=== PATIENT | female | born 1945 | race Caucasian/White ===

== ENCOUNTER 2019-05-25 11:02 | Emergency (ER) | payer MEDICARE, SELFPAY ==
--- NOTE | 2019-05-25 11:10 | ECG_ITS ---
Measurements Intervals [place] Rate: 88 P: 67 [place]: 181 QRS: 12 QRSD: 95 T: 4 QT: 390 QTc: 473 Interpretive Statements SINUS RHYTHM BORDERLINE ST-T WAVE ABNORMALITY- INFERIOR LEADS BORDERLINE ECG Electronically Signed On 05-25-2019 12:07:21 SENIOR TEST ANALYST by Ariel Isaacs D.O.
[2019-05-25 11:21] VITALS: BP 165/92; PULSE 83; RESP 16; TEMP 36.6; O2SAT 97
[2019-05-25 11:26] LABS: Basophils Absolute Auto 0.05 K/mm3 (0.00-0.10); Basophils Percent Auto 0.6 % (0.0-1.0); Eosinophils Absolute Auto 0.39 K/mm3 (0.02-0.50); Eosinophils Percent Auto 4.4 % (1.0-6.0); Hematocrit 42.9 % (35.0-42.0); Hemoglobin 14.5 g/dL (11.7-13.8); Immature Granulocyte Absolute 0.04 K/mm3 (0.00-0.00); Immature Granulocyte Percent A 0.5 % (0.0-0.0); Lymphocytes Absolute Auto 1.65 K/mm3 (1.10-4.50); Lymphocytes Percent Auto 18.8 % (18.0-42.0); Mean Corpuscular HGB Conc 33.8 g/dL (32.0-36.0); Mean Corpuscular Hemoglobin 29.9 pg (27.0-31.0); Mean Corpuscular Volume 88.5 fL (78.0-102.0); Mean Platelet Volume 10.7 fl (9.2-11.8); Monocytes Absolute Auto 0.63 K/mm3 (0.10-0.90); Monocytes Percent Auto 7.2 % (2.0-11.0); Neutrophils Percent Auto 68.5 % (50.0-70.0); Platelet Count Result 233 K/mm3 (150-420); Red Blood Count 4.85 M/mm3 (4.20-5.40); Red Cell Distribution Width 12.5 % (11.6-14.4); White Blood Count 8.8 K/mm3 (4.8-10.8)
[2019-05-25 11:50] LABS: Alanine Aminotransferase 19 U/L (14-59); Albumin Level 4.2 g/dL (3.4-5.0); Alkaline Phosphatase 107 U/L (46-116); Anion Gap 17.3 mmol/L (7-16); Aspartate Amino Transferase 19 U/L (15-37); Bilirubin,Total 0.6 mg/dL (0.00-1.00); Blood Urea Nitrogen 16 mg/dL (7-18); Calcium 9.2 mg/dL (8.5-10.1); Carbon Dioxide 24 mmol/L (21-32); Chloride 105 mmol/L (98-108); Estimated Glomerular Filt Rate 59; Glucose 112 mg/dL (70-99); Osmolality Calculated 298 mOsm/kg (285-295); Potassium 3.3 mmol/L (3.5-5.1); Sodium 143 mmol/L (136-145); Total Protein 7.9 g/dL (6.4-8.2)
[2019-05-25 11:58] LABS: Troponin I < 0.02 ng/mL (0.00-0.056)
[2019-05-25] MEDS: AMLODIPINE BESYLATE 5 MG TABLET PO (12:27)
[2019-05-25] MEDS: POTASSIUM CHLORIDE 20 MEQ TABLET 40 MEQ PO (12:27)
[2019-05-25 12:37] LABS: Add Urine Microscopic? NO; Appearance Urine Clear (Clear); Bilirubin Urine Negative (Negative); Blood Urine Negative (Negative); Color Urine Yellow (Yellow); Glucose Urine UA Negative (Negative); Ketones Urine Negative (Negative); Leukocyte Esterase Ur Negative LEU/UL (Negative); Nitrate Urine Negative (Negative); Protein Urine Negative (Negative); Urobilinogen Urine 0.2 mg/dL (0.2-1.0)
[2019-05-25 12:54] VITALS: BP 189/106
--- NOTE | 2019-05-25 13:04 | ED.GENADULT ---
HPI - General Adult General Chief complaint: Recheck/Abnormal Lab/Rx Stated complaint: blood pressure /dizzy Source: patient and family Mode of arrival: ambulatory Limitations: no limitations History of Present Illness HPI narrative: 74-year-old female presents with elevated blood pressure some presented for a blood pressure check and her blood pressure was about 189/106 with dizziness, patient is currently on lisinopril and Norvasc, patient had no other symptoms, there is no chest pain no shortness of breath no abdominal pain no nausea vomiting no headache no blurry vision. Onset (ago): hour(s) Associated symptoms: denies other symptoms Related Data Home Medications Medication Instructions Recorded Confirmed amlodipine 2.5 mg PO DAILY 05/25/19 05/25/19 levothyroxine 88 mcg PO DAILY 05/25/19 05/25/19 lisinopril 40 mg PO DAILY 05/25/19 05/25/19 omeprazole 20 mg PO DAILY 05/25/19 05/25/19 pravastatin 40 mg PO DAILY 05/25/19 05/25/19 tramadol 50 mg PO Q6-8H PRN 05/25/19 05/25/19 Allergies Allergy/AdvReac Type Severity Reaction Status Date / Time acetaminophen Allergy Intermediate INDIGESTION Verified 05/25/19 12:57 AND CHEST TIGHTNESS aspirin Allergy Intermediate INDIGESTION Verified 06/06/15 07:48 AND CHEST TIGHTNESS calcium carbonate Allergy Intermediate INDIGESTION Verified 06/06/15 07:48 AND CHEST TIGHTNESS hydrocodone Allergy Intermediate ITCHING Verified 06/06/15 07:48 Review of Systems Review of Systems: All systems reviewed & are unremarkable except as noted in HPI and below PMFSH Past Medical History Medical History (Updated 05/25/19 @ 14:15 by Sanya Pulido MD) HTN (hypertension) Social History Social History Smoking status: Never smoker Alcohol intake: never Exam Const: General: no acute distress and alert Orientation/consciousness: patient oriented x3 Limitations: altered mental status HENMT: Head: normal to inspection Eyes: Conjunctivae: conjunctivae normal Pupils: Equal, round and reactive pupils present Neck: Neck: normal visual inspection and no lymphadenopathy Resp: Effort & Inspection: normal respiratory effort Cardio: Rate: regular rate Rhythm: regular rhythm GI: GI Palp: Yes Soft to palpation : General: Yes no CVA tenderness Back/Spine/Pelvis: Back: no CVA tenderness Skin: General skin exam: normal color Rashes: no rashes Neuro: General: patient oriented x3, no meningeal signs, no focal motor deficits and CN's II-XI intact bilaterally Cranial nerves: Yes Nystagmus not present Speech: normal speech Extrem: General: normal to inspection Psych: Mental Status: mental status grossly normal Course Vital Signs Vital signs: Vital Signs Temperature 36.6 C 05/25/19 11:21 Pulse Rate 83 05/25/19 11:21 Respiratory Rate 16 05/25/19 11:21 Blood Pressure 165/92 H 05/25/19 11:21 Pulse Oximetry 97 05/25/19 11:21 Temperature 36.6 C 05/25/19 11:21 Pulse Rate 73 05/25/19 13:48 Respiratory Rate 16 05/25/19 11:21 Blood Pressure 155/94 H 05/25/19 14:07 Pulse Oximetry 97 05/25/19 11:21 Medical Decision Making Vital Signs Vital Signs: Vital Signs Temperature 36.6 C 05/25/19 11:21 Pulse Rate 83 05/25/19 11:21 Respiratory Rate 16 05/25/19 11:21 Blood Pressure 165/92 H 05/25/19 11:21 Pulse Oximetry 97 05/25/19 11:21 Temperature 36.6 C 05/25/19 11:21 Pulse Rate 73 05/25/19 13:48 Respiratory Rate 16 05/25/19 11:21 Blood Pressure 155/94 H 05/25/19 14:07 Pulse Oximetry 97 05/25/19 11:21 Lab Data Lab results reviewed: Yes I reviewed the patient's lab results. Result diagrams: 05/25/19 11:17 05/25/19 11:17 Labs: Lab Results 05/25/19 05/25/19 05/25/19 Range/Units 11:15 11:17 11:17 WBC 8.8 (4.8-10.8) K/mm3 RBC 4.85 (4.20-5.40) M/mm3 Hgb 14.5 H (11.7-13.8) g/dL
[2019-05-25 13:48] VITALS: PULSE 73
[2019-05-25] MEDS: METOPROLOL TARTRATE INJ 5 MG/5 ML VIAL IV PUSH (13:48)
[2019-05-25 13:49] VITALS: BP 176/94
[2019-05-25 14:07] VITALS: BP 155/94
[2019-05-25 14:28] VITALS: BP 132/71
== END 2019-05-25 14:29 | disposition home or self-care (01) ==
PROVIDERS: Emergency Provider Emergency Medicine; PCP Internal Medicine
DX: I10 Essential (primary) hypertension (principal)
CPT/HCPCS: 36415; 80053; 81003; 84484; 85025; 93005; 96374; 99283; 99284; A9270

== ENCOUNTER 2019-05-31 11:27 | Outpatient (CLI) | payer MEDICARE, SELFPAY ==
[2019-05-31 12:46] LABS: Anion Gap 15.9 mmol/L (7-16); Blood Urea Nitrogen 27 mg/dL (7-18); Calcium 9.7 mg/dL (8.5-10.1); Carbon Dioxide 27 mmol/L (21-32); Chloride 106 mmol/L (98-108); Estimated Glomerular Filt Rate 44; Glucose 96 mg/dL (70-99); Osmolality Calculated 305 mOsm/kg (285-295); Potassium 3.9 mmol/L (3.5-5.1); Sodium 145 mmol/L (136-145)
== END 2019-05-31 11:28 | disposition home or self-care (01) ==
LOC: CHSLAB 11:29
PROVIDERS: PCP Internal Medicine; Visit Provider Internal Medicine
DX: I10 Essential (primary) hypertension (principal)
CPT/HCPCS: 36415; 80048

== ENCOUNTER 2019-10-11 07:43 | Outpatient (CLI) | payer MEDICARE, SELFPAY ==
[2019-10-11 07:57] LABS: Add Urine Microscopic? YES; Appearance Urine Clear (Clear); Bilirubin Urine Negative (Negative); Blood Urine Negative (Negative); Color Urine Yellow (Yellow); Glucose Urine UA Negative (Negative); Ketones Urine 1+ (Negative); Leukocyte Esterase Ur Negative (Negative); Nitrate Urine Negative (Negative); Protein Urine Negative (Negative); Specific Grav Ur 1.015 (1.010-1.020); Urobilinogen Urine 0.2 mg/dL (0.2-1.0)
[2019-10-11 08:03] LABS: Bacteria Urine None seen /hpf; RBC Urine None seen /hpf (0-2); Renal Epithelial Cells Urine Few /hpf; Squamous Epithelial Cell Urine Few /hpf (Few); WBC Urine None seen /hpf (0-3)
[2019-10-11 08:17] LABS: Hemoglobin A1C 5.7 % (<5.7)
[2019-10-11 10:00] LABS: Alanine Aminotransferase 17 U/L (14-59); Alkaline Phosphatase 95 U/L (46-116); Anion Gap 14.7 mmol/L (7-16); Aspartate Amino Transferase 20 U/L (15-37); Bilirubin,Total 0.8 mg/dL (0.00-1.00); Blood Urea Nitrogen 21 mg/dL (7-18); Calcium 8.8 mg/dL (8.5-10.1); Carbon Dioxide 26 mmol/L (21-32); Chloride 104 mmol/L (98-108); Cholesterol 180 mg/dL (0-200); Creatine Kinase 73 U/L (26-192); Estimated Glomerular Filt Rate 56; Free T3 2.59 pg/mL (2.18-3.98); Free T4 Free Thyroxine 1.43 ng/dL (0.76-1.46); Glucose 78 mg/dL (70-99); HDL Direct 65 mg/dL (40-60); LDL Cholesterol Calculated 100 mg/dL (<130); Osmolality Calculated 294 mOsm/kg (285-295); Potassium 3.7 mmol/L (3.5-5.1); Sodium 141 mmol/L (136-145); Thyroid Stimulating Hormone 0.93 uIU/mL (0.36-3.74); Triglycerides 76 mg/dL (0-150)
[2019-10-13 19:21] LABS: Vitamin D 25 Hydroxy 33 ng/mL (30-100)
== END 2019-10-11 07:44 | disposition home or self-care (01) ==
PROVIDERS: PCP Internal Medicine; Visit Provider Internal Medicine
DX: E03.4 Atrophy of thyroid (acquired) (principal); I10 Essential (primary) hypertension; E78.2 Mixed hyperlipidemia; M81.0 Age-related osteoporosis without current pathological fracture; R73.01 Impaired fasting glucose
CPT/HCPCS: 36415; 80053; 80061; 81001; 82306; 82550; 83036; 84439; 84443; 84481

== ENCOUNTER 2019-12-03 08:27 | Outpatient (CLI) | payer MEDICARE, SELFPAY ==
--- NOTE | ~2019-12-03 | MM_ITS ---
EXAMINATION: MM screening flash BI w tripp HISTORY: Screening TECHNIQUE: Craniocaudal and mediolateral oblique 3-D tomosynthesis images were obtained and synthetic 2-D images were generated. CAD analysis was submitted and interpreted. COMPARISON: Comparison to multiple prior studies sequentially, with oldest reviewed study dated 01/20. BREAST PARENCHYMAL COMPOSITION: There are scattered areas of fibroglandular density. FINDINGS: There is no evidence of suspicious mass, calcification, or architectural distortion to sugg est malignancy in either breast. There has been no suspicious interval change. IMPRESSION: 1. No mammographic evidence of malignancy. 2. Recommend routine screening mammography in one year. BI-RADS Category 1: Negative Reviewed, dictated and finalized at location A.
--- NOTE | ~2019-12-03 | DEXA_ITS ---
BMD(1) Young-Adult(2) Age-Matched(3) Region (g/cm2) T-score Z-score WHO Classification L1 0.957 -1.5 -0.3 Osteopenia L2 1.095 -1.0 0.3 Normal L3 1.512 2.4 3.6 Normal L4 1.485 2.1 3.3 Normal L1-L4 1.262 0.5 1.8 Normal Trend: L1-L4 Change vs Change vs Measured Age BMD(1) Baseline Previous Date (years) (g/cm2) (%) (%) 11/03/2019 [age] 1.262 0.6 -0.2 03/26/2017 [age] 1.265 0.9 -1.5 07/08/2014 [age] 1.284 2.4* 2.4* 12[birth year]29/2009 [age] 1.254 baseline - * - Indicates significant change based on 95% confidence interval. 1 - Statistically 68% of repeat scans fall within 1SD (+- 0.010 g/cm2 for AP Spine L1-L4) 2 - [place] (Combined NHANES (ages 20-30) / [employer] (ages 20-40)) AP Spine Reference Population (v112) 3 - Matched for Age, Weight (females 25-100 kg), Ethnic 11 - World Health Organization - Definition of Osteoporosis and Osteopenia for Women: Normal = T-score at or above -1.0 SD; Osteopenia = T-score between -1.0 and -2.5 SD; Osteoporosis = T-score at or below -2.5 SD; (WHO definitions only apply when a young healthy Women reference database is used to determine T-scores.) Printed: 12/03/2019 9:14:06 AM ()76:3.00:50.00:12.0 0.00:10.68 0.60x1.05 24.9:%Fat=46.0% 0.00:0.00 0.00:0.00 Filename: [id number] Scan Mode: Standard;OneScan 37.0 uGfintonic [id number] Dear El Johnson, Your patient Keisha Reddy completed a BMD test on 12/03/2019 using the Garmentory DXA System (analysis version: 13.60) manufactured by [employer]. The following summarizes the results of our evaluation. PATIENT BIOGRAPHICAL: Name: Keisha Reddy Date: 1945 Height: 62.0 in. Gender: Female Exam Date: 12/03/2019 Weight: 178.0 lbs. Indications: Height Loss, Bilateral Ovariectomy, History of Fracture (Adult), Caffeinated drinks, Hypothyroidism, Menopause, Family Hx of Osteo, , Hysterectomy, Back Pain Fractures: Humerus Treatments: Calcium, Hormone Therapy, Synthroid, Vitamin D, Exercise Regularly, Forteo, Multivitamin ASSESSMENT: The BMD measured at AP Spine L1-L4 is 1.262 g/cm2 with a T-score of 0.5. This patient is considered normal according to World Health Organization (WHO) criteria. Fracture risk is low. Site Region Measured Measured WHO Young Adult Young Adult BMD Date Age Classification T-score AM Z-score AP Spine L1-L4 12/03/2019 75.7 Normal 0.5 1.8 1.262 g/cm2 World Health Organization (WHO) criteria for post-menopausal, Women: Normal: T-score at or above -1 SD Osteopenia: T-score between -1 and -2.5 SD Osteoporosis: T-score at or below -2.5 SD RECOMMENDATIONS: All patients should ensure an adequate intake of dietary calcium (1200 mg/d) and vitamin D (400-800 IU daily). FOLLOW-UP: People with diagnosed cases of osteoporosis or at high risk for fracture should have regular bone mineral density tests. For patients eligible for Medicare, routine
== END 2019-12-03 08:28 | disposition home or self-care (01) ==
LOC: CHSIMG 08:28
PROVIDERS: PCP Internal Medicine; Visit Provider Internal Medicine
DX: Z12.31 Encounter for screening mammogram for malignant neoplasm of breast (principal); M81.0 Age-related osteoporosis without current pathological fracture
CPT/HCPCS: 77063; 77067; 77080

== ENCOUNTER 2020-01-05 00:55 | Outpatient (CLI) | payer MEDICARE, SELFPAY ==
[2020-01-05 18:28] LABS: SARS-CoV-2 RNA PCR Negative
== END 2020-01-05 00:56 | disposition home or self-care (01) ==
LOC: ANHCOVIDDT 00:56
PROVIDERS: Surgery; PCP Internal Medicine; Visit Provider Surgery
DX: Z01.812 Encounter for preprocedural laboratory examination (principal); Z20.828 Contact with and (suspected) exposure to other viral communicable diseases
CPT/HCPCS: 87635; C9803; U0003

== ENCOUNTER 2020-01-07 03:42 | Day surgery (SDC) | payer MEDICARE, SELFPAY ==
[2019-12-29 13:15] VITALS: BMI 31.7
[2020-01-07 11:48] VITALS: BP 152/88; PULSE 89; RESP 16; TEMP 36.6; O2SAT 100; BMI 31.1
--- NOTE | 2020-01-07 11:58 | WPDANESEPPF ---
Anes - Initial Pre Proc Eval Procedure: Operation Date: 01/07/20 11:30 Proposed Procedures p Screening Colonoscopy - Keron Irwin DO Date/Time: 01/07/20 11:58 Surgeon: Keron Irwin DO Pre Op Diagnosis: Hx Colon Polyps Patient Data Age: 74 Gender: F Height: 5 ft 3 in Weight: 79.9 kg Last Vital Signs Temp 97.8 F 01/07/20 11:48 Pulse 89 01/07/20 11:48 Resp 16 01/07/20 11:48 BP 152/88 H 01/07/20 11:48 Pulse Ox 100 01/07/20 11:48 Allergies Allergy/AdvReac Type Severity Reaction Status Date / Time calcium carbonate Allergy Intermediate INDIGESTION Verified 01/07/20 11:37 AND CHEST TIGHTNESS hydrocodone Allergy Intermediate ITCHING Verified 01/07/20 11:37 caffeine AdvReac Mild indigestion Verified 01/07/20 11:37 [From Excedrin Migraine] Home Medications Medication Instructions Recorded Confirmed Type amlodipine 2.5 mg PO DAILY 05/25/19 01/07/20 History levothyroxine 88 mcg PO DAILY 05/25/19 01/07/20 History lisinopril 40 mg PO DAILY 05/25/19 01/07/20 History omeprazole 20 mg PO DAILY 05/25/19 01/07/20 History pravastatin 40 mg PO DAILY 05/25/19 01/07/20 History tramadol 50 mg PO Q6-8H PRN 05/25/19 01/07/20 History aspirin 81 mg chewable tablet 81 mg PO DAILY 08/09/19 12/29/19 History loratadine 10 mg tablet 10 mg PO DAILY PRN 08/09/19 12/29/19 History polyethylene glycol 3350 17 17 gm PO DAILY PRN 08/09/19 12/29/19 History gram/dose oral powder acetaminophen [Tylenol] 325 mg PO ONCE PRN 12/29/19 12/29/19 History cholecalciferol (vitamin D3) 25 mcg PO DAILY 12/29/19 01/07/20 History [Vitamin D3] meclizine 25 mg PO BID PRN 12/29/19 12/29/19 History [id number]-[id number]-hbjuqtj-min 1 tablet PO DAILY 12/29/19 12/29/19 History [ICaps] Patient hx anesthesia problems: none Family hx anesthesia problems: none PMFSH Past Medical History Medical History (Updated 01/07/20 @ 11:55 by Edward Drake MD) Arthritis Dyslipidemia GERD (gastroesophageal reflux disease) HTN (hypertension) Hypothyroid Social History Social History Years smoked: 7 Smoking status: Former smoker Tobacco type: cigarettes Alcohol intake: never Substance use type: does not use Anes - Eval Final PreProcedure Day of Procedure 01/07/20 11:58 Patient weight: overweight Heart: regular rate and rhythm Lungs: clear to auscultation Airway: Mallampati scale class II Neurological: alert and oriented Last oral intake: >/= 8 hours ASA classification: III Emergent: no Anesthetic plan: proceed Anesthesia type and monitoring: general GIVS and standard monitoring Informed Consent: The patient's anesthetic plan and its attendant risks and benefits were discussed with the patient/family/POA. Questions were solicited and answers provided to the satisfaction of the patient/family/POA.
[2020-01-07] MEDS: LACTATED RINGERS 1,000 ML 150 ML IV CONT (12:03)
--- NOTE | 2020-01-07 13:15 | PM.IMHP ---
H&P: HPI History of Present Illness Date/Time: 01/07/20 13:15 Chief complaint: Hx Colon Polyps Narrative: Keisha Reddy is a 74 year old female who presents with a prior hx of colon polyps. Also had a concerning area of possible stricture or mass, but follow up studies showed no evidence. her last colonoscopy was 3 years ago. Review of Systems Review of Systems: All systems reviewed & are unremarkable except as noted in HPI and below Constitutional: Constitutional: Denies chills, Denies fever(s), Denies headache(s) and Denies weight loss Eyes: Eyes: Denies change in vision ENT: Denies dizziness, Denies headache(s), Denies neck mass and Denies throat swelling Cardiovascular: Cardiovascular: Denies chest pain, Denies lightheadedness and Denies dyspnea Respiratory: Respiratory: Denies cough, Denies dyspnea and Denies wheezing Gastrointestinal: Gastrointestinal: Denies abdominal pain, Denies change in bowel habits, Denies nausea and Denies vomiting Genitourinary: Genitourinary: Denies hematuria and Denies dysuria Musculoskeletal: Musculoskeletal: Reports as per HPI Integumentary/Breasts: Skin/Breast: Reports as per HPI Neurologic: Denies dizziness and Denies headache(s) Allergic/Immunologic: Allergic/Immunologic: Denies throat swelling and Denies wheezing PMF Past Medical History Medical History Arthritis Dyslipidemia GERD (gastroesophageal reflux disease) HTN (hypertension) Hypothyroid Social History Social History Years smoked: 7 Smoking status: Former smoker Tobacco type: cigarettes Alcohol intake: never Substance use type: does not use Meds Home Medications and Allergies Home Medications Medication Instructions Recorded Confirmed Type amlodipine 2.5 mg PO DAILY 05/25/19 01/07/20 History levothyroxine 88 mcg PO DAILY 05/25/19 01/07/20 History lisinopril 40 mg PO DAILY 05/25/19 01/07/20 History omeprazole 20 mg PO DAILY 05/25/19 01/07/20 History pravastatin 40 mg PO DAILY 05/25/19 01/07/20 History tramadol 50 mg PO Q6-8H PRN 05/25/19 01/07/20 History aspirin 81 mg chewable tablet 81 mg PO DAILY 08/09/19 01/07/20 History loratadine 10 mg tablet 10 mg PO DAILY PRN 08/09/19 12/29/19 History polyethylene glycol 3350 17 17 gm PO DAILY PRN 08/09/19 12/29/19 History gram/dose oral powder acetaminophen [Tylenol] 325 mg PO ONCE PRN 12/29/19 12/29/19 History cholecalciferol (vitamin D3) 25 mcg PO DAILY 12/29/19 01/07/20 History [Vitamin D3] meclizine 25 mg PO BID PRN 12/29/19 12/29/19 History [id number]-fuwxyu-[id number]-min 1 tablet PO DAILY 12/29/19 12/29/19 History [ICaps] Allergies Allergy/AdvReac Type Severity Reaction Status Date / Time calcium carbonate Allergy Intermediate INDIGESTION Verified 01/07/20 11:37 AND CHEST TIGHTNESS hydrocodone Allergy Intermediate ITCHING Verified 01/07/20 11:37 caffeine AdvReac Mild indigestion Verified 01/07/20 11:37 [From Excedrin Migraine] Vital Signs Vital Signs - 24 hr 01/07/20 11:48 Temperature 36.6 C Pulse Rate 89 Respiratory Rate 16 Blood Pressure 152/88 H Pulse Oximetry 100 Exam Const: General: no acute distress and alert Orientation/consciousness: patient oriented x3 HENMT: Head: normocephalic and atraumatic Ears: hearing grossly normal bilaterally General nose exam: Normal nares present Mouth: Yes Normal oral and palatal mucosa present Eyes: Periorbital: periorbital findings normal Sclera: sclerae normal EOM: EOMs intact bilaterally Neck: Neck: normal visual inspection, no lymphadenopathy and trachea midline Chest: Chest palpation & inspection: normal inspection of the chest Resp: Effort & Inspection: normal respiratory effort Auscultation: clear to auscultation bilaterally Cardio: Jugular venous distension: no JVD Rate: regular rate Rhythm: regular rhythm Heart sounds: S
[2020-01-07 13:48] VITALS: BP 109/55; PULSE 75; RESP 20; O2SAT 100
[2020-01-07 13:58] VITALS: BP 105/57; PULSE 73; RESP 22; O2SAT 99
[2020-01-07 14:08] VITALS: BP 121/68; PULSE 69; RESP 20; O2SAT 100
== END 2020-01-07 14:18 | disposition home or self-care (01) ==
PROVIDERS: PCP Internal Medicine; Visit Provider Surgery
PROC: 0DJD8ZZ Inspection of Lower Intestinal Tract, Via Natural or Artificial Opening Endoscopic (ICD-10-PCS; CPT 45378; principal; 2020-01-07 11:30)
DX: Z12.11 Encounter for screening for malignant neoplasm of colon (principal); D12.2 Benign neoplasm of ascending colon; K63.5 Polyp of colon; K57.30 Diverticulosis of large intestine without perforation or abscess without bleeding; I10 Essential (primary) hypertension; E78.5 Hyperlipidemia, unspecified; E03.9 Hypothyroidism, unspecified; K21.9 Gastro-esophageal reflux disease without esophagitis; Z79.82 Long term (current) use of aspirin; Z87.891 Personal history of nicotine dependence
CPT/HCPCS: 45385; 88305; J2370; J2704; J7120

== ENCOUNTER 2020-05-31 09:07 | Outpatient (CLI) | payer MEDICARE, SELFPAY ==
[2020-05-31 09:21] LABS: Add Urine Microscopic? YES; Appearance Urine Clear (Clear); Bilirubin Urine Negative (Negative); Blood Urine Negative (Negative); Color Urine Yellow (Yellow); Glucose Urine UA Negative (Negative); Ketones Urine Trace (Negative); Leukocyte Esterase Ur Negative (Negative); Nitrate Urine Negative (Negative); Protein Urine Negative (Negative); Specific Grav Ur 1.025 (1.010-1.020); Urobilinogen Urine 0.2 mg/dL (0.2-1.0)
[2020-05-31 09:26] LABS: Hemoglobin A1C 5.7 % (<5.7)
[2020-05-31 09:33] LABS: Bacteria Urine 1+ /hpf; Mucus Urine Moderate /lpf; RBC Urine None seen /hpf (0-2); Squamous Epithelial Cell Urine Moderate /hpf (Few); WBC Urine None seen /hpf (0-3)
[2020-05-31 10:27] LABS: Alanine Aminotransferase 17 U/L (14-59); Alkaline Phosphatase 90 U/L (46-116); Anion Gap 10 mmol/L (8-16); Aspartate Amino Transferase 13 U/L (15-37); Bilirubin,Total 0.7 mg/dL (0.00-1.00); Blood Urea Nitrogen 23 mg/dL (7-18); Calcium 9.2 mg/dL (8.5-10.1); Carbon Dioxide 29 mmol/L (21-32); Chloride 104 mmol/L (98-108); Cholesterol 181 mg/dL (0-200); Creatine Kinase 49 U/L (26-192); Estimated Glomerular Filt Rate > 60; Free T3 2.36 pg/mL (2.18-3.98); Glucose 89 mg/dL (70-99); HDL Direct 64 mg/dL (40-60); LDL Cholesterol Calculated 102 mg/dL (<130); Osmolality Calculated 298 mOsm/kg (285-295); Potassium 3.8 mmol/L (3.5-5.1); Sodium 143 mmol/L (136-145); Thyroid Stimulating Hormone 0.36 uIU/mL (0.36-3.74); Triglycerides 75 mg/dL (0-150)
[2020-06-05 20:12] LABS: Vitamin D 25 Hydroxy 34 ng/mL (30-100)
== END 2020-05-31 09:08 | disposition home or self-care (01) ==
LOC: CHSLAB 09:08
PROVIDERS: PCP Internal Medicine; Visit Provider Internal Medicine
DX: E78.2 Mixed hyperlipidemia (principal); I10 Essential (primary) hypertension; R73.01 Impaired fasting glucose; E55.9 Vitamin D deficiency, unspecified; E03.4 Atrophy of thyroid (acquired)
CPT/HCPCS: 36415; 80053; 80061; 81001; 82306; 82550; 83036; 84439; 84443; 84481

== ENCOUNTER 2020-09-16 07:30 | Outpatient (CLI) | payer MEDICARE, BC, SELFPAY ==
--- NOTE | ~2020-09-16 | MR_ITS ---
EXAMINATION: MR lumbar spine wo con DATE: 09/16/2020 08:28 INDICATION: Lumbar spinal stenosis. Lumbar radiculopathy. TECHNIQUE: Magnetic resonance imaging (MRI) of the lumbar spine was performed without intravenous con trast. Sequences included sagittal T2-weighted FSE, sagittal T2-weighted FS FSE, sagittal T1-weighted FSE, and axial T2-weighted FSE. COMPARISON: Lumbar spine MRI 01/14/2018, CT abdomen and pelvis 05/01/2015 FINDINGS: There is 25 degrees levoscoliosis of lumbar spine. There is moderately decreased disc heigh t at L1-L2 and severely decreased disc height from L2-L3 through L5-S1 with endplate remodeling. No a cute fracture. The distal spinal cord signal intensity is normal. The conus medullaris is at L1. Ther e is a heterogeneous 1.5 cm mass in left kidney. The following disc levels are specifically discussed : L1-L2: The disc is bulging and has an annular fissure. There is moderate bilateral facet joint osteoa rthritis. There is moderate right and mild left neural foraminal stenosis. There is mild central merly l stenosis. L2-L3: The disc is bulging and has an annular fissure. There is severe right and mild left facet join t osteoarthritis. There is moderate right and mild left neural foraminal stenosis. There is mild cent ral canal stenosis. L3-L4: The disc is bulging and has an annular fissure. There is moderate bilateral facet joint osteoa rthritis. There is moderate bilateral neural foraminal stenosis. There is moderate central canal sten osis. L4-L5: The disc is bulging with superimposed left central extrusion. There is moderate right and reji re left facet joint osteoarthritis. There is mild right and moderate left neural foraminal stenosis. There is mild central canal stenosis. L5-S1: The disc is bulging and has an annular fissure. There is moderate bilateral facet joint osteoa rthritis. There is mild bilateral neural foraminal stenosis. There is mild central canal stenosis. IMPRESSION: 1. Severe lumbar spondylosis, stable from 01/14/2018. 2. Lumbar levoscoliosis. 3. 1.5 cm left kidney mass, which may be a hemorrhagic cyst or neoplasm. Abdomen CT without and with contrast is recommended. Reviewed, dictated and finalized at location A. IMPRESSION: 1. Severe lumbar spondylosis, stable from 01/14/2018. 2. Lumbar levoscoliosis. 3. 1.5 cm left kidney mass, which may be a hemorrhagic cyst or neoplasm. Abdome n CT without and with contrast is recommended.
== END 2020-09-16 07:31 | disposition home or self-care (01) ==
PROVIDERS: PCP Internal Medicine
DX: M48.062 Spinal stenosis, lumbar region with neurogenic claudication (principal); M54.16 Radiculopathy, lumbar region; M51.36 Other intervertebral disc degeneration, lumbar region
CPT/HCPCS: 72148

== ENCOUNTER 2020-09-20 09:19 | Outpatient (CLI) | payer MEDICARE, SELFPAY ==
--- NOTE | ~2020-09-20 | CT_ITS ---
EXAMINATION: CT abdomen wo/w con EXAM DATE: 09/20/2020 10:08 INDICATION: Left renal mass. TECHNIQUE: Spiral CT of the abdomen was performed without and then with intravenous injection of 100 mL Omnipaque 350. Axial, coronal and sagittal images of the abdomen were reviewed. The dose-length product (DLP) for this examination was 740.00 mGy-cm. The exposure was tailored according to patien t size (auto mA exposure control), and iterative reconstruction (ASIR) was used as additional dose re duction technique. Correlation is made to lumbar spine MRI examination 09/16/2020, CT chest abdomen pe lvis 05/01/2015. FINDINGS: There is enhancing left renal lesion measuring 1.5 cm in the midpole posterior cortex. Loca tion may be amenable to cryoablation. No evidence of this mass on CT from 2016. The largest liver cys t is in the left liver lobe lateral segment, measures 2.2 cm. The spleen, pancreas, and adrenal glan ds are unremarkable. 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 Gallbladder is unremarkable. No biliary obstruction. Portal and splenic veins are patent. Kidneys enhance symmetrically. There is no hydronephrosis. There is no retroperitoneal lymphadenopathy. There is mild scattered arteriosclerotic disease. There is a large gastroesophageal hiatal hernia. There is mild scattered colonic diverticulosis. Th ere is no adjacent inflammatory change to suggest diverticulitis. There is expected amount of colonic stool. No free intraperitoneal gas. The heart is normal in size. There are no pericardial or pl eural effusions. The lung bases are unremarkable. Moderate upper lumbar levoscoliosis and moderate to severe lumbar disc disease. IMPRESSION: 1. Enhancing left renal 1.5 cm mass most likely RCC. Recommend consult. 2. 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 3. Scattered colonic diverticulosis. Reviewed, dictated and finalized at location B.
[2020-09-20 09:43] LABS: Estimated Glomerular Filt Rate 52
== END 2020-09-20 09:20 | disposition home or self-care (01) ==
LOC: CHSIMG 09:23
PROVIDERS: PCP Internal Medicine; Visit Provider Internal Medicine
DX: N28.89 Other specified disorders of kidney and ureter (principal)
CPT/HCPCS: 74170; Q9967

== ENCOUNTER 2020-12-15 09:45 | Outpatient (CLI) | payer MEDICARE, SELFPAY ==
[2020-12-15 09:56] LABS: Basophils Absolute Auto 0.03 K/mm3 (0.00-0.10); Basophils Percent Auto 0.5 % (0.0-1.0); Eosinophils Absolute Auto 0.29 K/mm3 (0.02-0.50); Eosinophils Percent Auto 4.6 % (1.0-6.0); Hematocrit 45.1 % (35.0-42.0); Hemoglobin 14.9 g/dL (11.7-13.8); Immature Granulocyte Absolute 0.02 K/mm3 (0.00-0.00); Immature Granulocyte Percent A 0.3 % (0.0-0.0); Lymphocytes Percent Auto 28.3 % (18.0-42.0); Mean Corpuscular Hemoglobin 30.1 pg (27.0-31.0); Mean Corpuscular Volume 91.1 fL (78.0-102.0); Mean Platelet Volume 10.1 fl (9.2-11.8); Monocytes Absolute Auto 0.54 K/mm3 (0.10-0.90); Monocytes Percent Auto 8.5 % (2.0-11.0); Neutrophils Absolute Auto 3.7 K/mm3 (1.7-7.2); Neutrophils Percent Auto 57.8 % (50.0-70.0); Platelet Count Result 227 K/mm3 (150-420); Red Blood Count 4.95 M/mm3 (4.20-5.40); Red Cell Distribution Width 12.1 % (11.6-14.4); White Blood Count 6.4 K/mm3 (4.8-10.8)
[2020-12-15 10:01] LABS: Add Urine Microscopic? YES; Appearance Urine Clear (Clear); Bilirubin Urine 1+ (Negative); Blood Urine Negative (Negative); Color Urine Yellow (Yellow); Glucose Urine UA Negative (Negative); Ketones Urine 1+ (Negative); Leukocyte Esterase Ur Negative LEU/UL (Negative); Nitrate Urine Negative (Negative); Protein Urine Negative (Negative); Specific Grav Ur 1.015 (1.010-1.020)
[2020-12-15 10:10] LABS: Bacteria Urine Trace /hpf; Mucus Urine Few /lpf; RBC Urine None seen /hpf (0-2); Squamous Epithelial Cell Urine Few /hpf (Few); WBC Urine None seen /hpf (0-3)
[2020-12-15 10:29] LABS: Hemoglobin A1C 5.5 % (<5.7)
[2020-12-15 10:39] LABS: Alanine Aminotransferase 26 U/L (14-59); Albumin Level 4.3 g/dL (3.4-5.0); Alkaline Phosphatase 98 U/L (46-116); Anion Gap 12 mmol/L (8-16); Aspartate Amino Transferase 17 U/L (15-37); Bilirubin,Total 0.9 mg/dL (0.00-1.00); Blood Urea Nitrogen 18 mg/dL (7-18); Calcium 9.3 mg/dL (8.5-10.1); Carbon Dioxide 27 mmol/L (21-32); Chloride 105 mmol/L (98-108); Cholesterol 197 mg/dL (0-200); Creatine Kinase 85 U/L (26-192); Creatinine Urine 166.72 mg/dL (40-278); Estimated Glomerular Filt Rate > 60; Glucose 83 mg/dL (70-99); HDL Direct 70 mg/dL (40-60); LDL Cholesterol Calculated 109 mg/dL (<130); MALB Creatinine Ratio 11.6 mg/g (0-30); Microalbumin Urine Random 19.4 mg/L; Osmolality Calculated 298 mOsm/kg (285-295); Potassium 3.8 mmol/L (3.5-5.1); Sodium 144 mmol/L (136-145); Total Protein 7.7 g/dL (6.4-8.2); Triglycerides 92 mg/dL (0-150)
[2020-12-18 10:59] LABS: Vitamin D 25 Hydroxy 28 ng/mL (30-100)
== END 2020-12-15 09:46 | disposition home or self-care (01) ==
LOC: CHSLAB 09:48
PROVIDERS: PCP Internal Medicine; Visit Provider Internal Medicine
DX: E78.5 Hyperlipidemia, unspecified (principal); I10 Essential (primary) hypertension; M81.0 Age-related osteoporosis without current pathological fracture; R73.01 Impaired fasting glucose
CPT/HCPCS: 36415; 80053; 80061; 81001; 82043; 82306; 82550; 83036; 85025

== ENCOUNTER 2020-12-26 09:30 | Outpatient (CLI) | payer MEDICARE, SELFPAY ==
--- NOTE | ~2020-12-26 | CT_ITS ---
EXAMINATION: CT abdomen wo/w con DATE: 12/26/2020 10:05 INDICATION: Left kidney mass. TECHNIQUE: Computed tomography (CT) of the abdomen was performed without and with 100 mL Omnipaque 35 0 intravenous contrast. Automated exposure control and iterative reconstruction technique were employ ed. The dose-length product was 903.56 mGy-cm. COMPARISON: CT abdomen 09/20/2020, CT chest, abdomen, and pelvis 05/01/2015 FINDINGS: The visualized portions of the lung bases demonstrate mild atelectasis. There is a 4 mm nod ule in right lower lobe. There are 7 mm and 4 mm nodules in right middle lobe. These findings are sta ble from 05/01/2015, likely benign. No pleural effusion. The heart size is normal. No pericardial effu michael. There is a large sliding hiatal hernia. There are cysts in the liver measuring up to 2.2 cm. Th ere are gallstones in the gallbladder, which is normal in size. The pancreas and adrenal glands are n ormal. There is a 2.1 x 1.3 cm rim calcified saccular aneurysm of splenic artery. Right kidney is nor mal. There is focal cortical thinning in left kidney. There is a 1.8 cm hypoenhancing left kidney mas s. There are no dilated loops of bowel. There are no pathologically enlarged lymph nodes. There is no free intraperitoneal fluid. There is a benign bone island in the sacrum. There is lumbar levoscolios is and severe spondylosis. IMPRESSION: 1. 1.8 cm hypoenhancing left kidney mass, stable from 09/20/2020 and new from 05/01/2015, consistent wit h renal cell carcinoma. 2. 2.1 x 1.3 cm saccular aneurysm of splenic artery, which measured 2.0 x 1.1 cm on 05/01/2015. Reviewed, dictated and finalized at location A. IMPRESSION: 1. 1.8 cm hypoenhancing left kidney mass, stable from 09/20/2020 and new from 04/21, consistent with renal cell carcinoma. 2. 2.1 x 1.3 cm saccular aneurysm of splenic artery, which measured 2.0 x 1.1 c m on 05/01/2015.
== END 2020-12-26 09:31 | disposition home or self-care (01) ==
PROVIDERS: PCP Internal Medicine; Visit Provider Urology
DX: N28.89 Other specified disorders of kidney and ureter (principal)
CPT/HCPCS: 74170; Q9967

== ENCOUNTER 2021-06-11 07:47 | Outpatient (CLI) | payer MEDICARE, SELFPAY ==
[2021-06-11 08:08] LABS: Basophils Absolute Auto 0.04 K/mm3 (0.00-0.10); Basophils Percent Auto 0.6 % (0.0-1.0); Eosinophils Absolute Auto 0.37 K/mm3 (0.02-0.50); Eosinophils Percent Auto 5.6 % (1.0-6.0); Hematocrit 42.8 % (35.0-42.0); Hemoglobin 14.1 g/dL (11.7-13.8); Immature Granulocyte Absolute 0.02 K/mm3 (0.00-0.00); Immature Granulocyte Percent A 0.3 % (0.0-0.0); Lymphocytes Absolute Auto 1.81 K/mm3 (1.10-4.50); Lymphocytes Percent Auto 27.6 % (18.0-42.0); Mean Corpuscular HGB Conc 32.9 g/dL (32.0-36.0); Mean Corpuscular Hemoglobin 30.2 pg (27.0-31.0); Mean Corpuscular Volume 91.6 fL (78.0-102.0); Mean Platelet Volume 10.5 fl (9.2-11.8); Monocytes Absolute Auto 0.59 K/mm3 (0.10-0.90); Neutrophils Absolute Auto 3.7 K/mm3 (1.7-7.2); Neutrophils Percent Auto 56.9 % (50.0-70.0); Platelet Count Result 210 K/mm3 (150-420); Red Blood Count 4.67 M/mm3 (4.20-5.40); Red Cell Distribution Width 12.4 % (11.6-14.4); White Blood Count 6.6 K/mm3 (4.8-10.8)
[2021-06-11 09:02] LABS: Appearance Urine Clear (Clear); Bilirubin Urine Negative (Negative); Color Urine Light Yellow (Yellow); Glucose Urine UA Negative (Negative); Ketones Urine Trace (Negative); Leukocyte Esterase Ur 1+ (Negative); Nitrate Urine Negative (Negative); Protein Urine Negative (Negative); Specific Grav Ur 1.015 (1.010-1.020)
[2021-06-11 09:28] LABS: Add Urine Microscopic? YES; Blood Urine Trace-Intact (Negative); RBC Urine None seen /hpf (0-2)
[2021-06-11 09:29] LABS: Bacteria Urine Trace /hpf; Mucus Urine Moderate /lpf; Squamous Epithelial Cell Urine Moderate /hpf (Few)
[2021-06-11 10:18] LABS: Hemoglobin A1C 5.5 % (<5.7)
[2021-06-11 10:50] LABS: Alanine Aminotransferase 22 U/L (14-59); Albumin Level 3.9 g/dL (3.4-5.0); Alkaline Phosphatase 85 U/L (46-116); Anion Gap 10 mmol/L (8-16); Aspartate Amino Transferase 18 U/L (15-37); Bilirubin,Total 0.8 mg/dL (0.00-1.00); Blood Urea Nitrogen 19 mg/dL (7-18); Carbon Dioxide 26 mmol/L (21-32); Chloride 105 mmol/L (98-108); Cholesterol 195 mg/dL (0-200); Creatine Kinase 50 U/L (26-192); Estimated Glomerular Filt Rate > 60; Free T3 2.33 pg/mL (2.18-3.98); Free T4 Free Thyroxine 1.13 ng/dL (0.76-1.46); Glucose 84 mg/dL (70-99); HDL Direct 65 mg/dL (40-60); LDL Cholesterol Calculated 111 mg/dL (<130); Osmolality Calculated 293 mOsm/kg (285-295); Potassium 3.8 mmol/L (3.5-5.1); Sodium 141 mmol/L (136-145); Thyroid Stimulating Hormone 1.58 uIU/mL (0.36-3.74); Triglycerides 93 mg/dL (0-150)
[2021-06-14 14:10] LABS: Vitamin D 25 Hydroxy 33 ng/mL (30-100)
== END 2021-06-11 07:48 | disposition home or self-care (01) ==
LOC: CHSLAB 07:50
PROVIDERS: PCP Internal Medicine; Visit Provider Internal Medicine
DX: E03.4 Atrophy of thyroid (acquired) (principal); I10 Essential (primary) hypertension; E78.2 Mixed hyperlipidemia; M81.0 Age-related osteoporosis without current pathological fracture; R73.01 Impaired fasting glucose
CPT/HCPCS: 36415; 80053; 80061; 81001; 82306; 82550; 83036; 84439; 84443; 84481; 85025

== ENCOUNTER 2021-06-19 09:59 | Outpatient (CLI) | payer MEDICARE, SELFPAY ==
--- NOTE | ~2021-06-19 | CT_ITS ---
EXAMINATION: CT diagnostic chest wo con EXAM DATE: 06/19/2021 10:19 INDICATION: Pulmonary Nodules Follow Up. TECHNIQUE: Spiral CT of the chest without contrast. Axial, coronal and sagittal images of the chest were reviewed. Coronal maximum intensity pixel images of chest reviewed. The dose-length product ( DLP) for this examination was 240.21 mGy-cm. The exposure was tailored according to patient size (au to mA exposure control), and iterative reconstruction (ASIR) was used as additional dose reduction te chnique. Correlation is made to CT abdomen 12/26/2020. FINDINGS: Right middle lobe 5 mm nodule, right lower lobe 3 mm nodule, both unchanged consistent wit h postinfectious residua. No new or suspicious pulmonary nodules. There is mild emphysema. There are no pleural or pericardial effusions. Tracheobronchial tree is patent. There is no mediastinal, hi lar or axillary lymphadenopathy. There is no pneumothorax. Heart normal in size. There is mild coronary arterial calcification, arterial sclerosis. Possible interval cryoablation of left renal ma ss. Splenic artery 1.8 cm aneurysm unchanged. There is large sliding gastroesophageal hiatal hernia. There is thoracic spondylosis without osteoblastic or osteolytic lesions identified. IMPRESSION: 1. Right basilar granulomata unchanged. 2. Mild emphysema. 3. Large hiatal hernia. Reviewed, dictated and finalized at location B. OR [employer]
== END 2021-06-19 10:00 | disposition home or self-care (01) ==
LOC: CHSIMG 10:03
PROVIDERS: PCP Internal Medicine; Visit Provider Internal Medicine
DX: R91.1 Solitary pulmonary nodule (principal)
CPT/HCPCS: 71250

== ENCOUNTER 2021-10-10 07:21 | Emergency (ER) | payer MEDICARE, SELFPAY ==
--- NOTE | ~2021-10-10 | CT_ITS ---
EXAMINATION: CT abdomen pelvis w con INDICATION: Nausea, vomiting, diarrhea, abdominal pain TECHNIQUE: Computed tomographic images of the abdomen and pelvis were obtained after the administrati on of 100 cc of Omnipaque 300 intravenous contrast. The dose-length product (DLP) was 804.63 mGy-cm. Automated exposure control and iterative reconstruction technique were employed. COMPARISON: 12/26/2020 FINDINGS: Stable nodules of the right middle lobe likely reflect old granulomatous disease. There is a large sliding hiatal hernia with organoaxial volvulus. Cysts of the liver measure up to 2.5 cm in t he left hepatic lobe. The spleen, pancreas, gallbladder, and adrenal glands are normal. 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 The right kidney is unremarkable. There is a 1.3 cm area of soft tissue density in the medial aspect of the left mid kidney at the site of the previo usly described renal cell carcinoma. No pathologically enlarged abdominal or pelvic lymph nodes are i dentified. There is a greater than normal number of fluid-filled, nondistended small bowel loops. Col onic diverticulosis is present without evidence of diverticulitis. There are changes of bilateral tot al hip arthroplasty. Severe lumbar spondylosis is noted. IMPRESSION: 1. Greater than normal number of fluid-filled, nondistended small bowel loops, likely enteritis. 2. Soft tissue density of the left kidney at the site of the previously described renal cell carcinom a. Given history of interval surgery, finding could reflect postsurgical change versus residual neopl asm. Follow-up by CT or MRI without and with contrast is recommended. Reviewed, dictated and finalized at location A. IMPRESSION: 1. Greater than normal number of fluid-filled, nondistended small bowel loops, likely enteritis. 2. Soft tissue density of the left kidney at the site of the previously describ ed renal cell carcinoma. Given history of interval surgery, finding could refle ct postsurgical change versus residual neoplasm. Follow-up by CT or MRI without and with contrast is recommended.
[2021-10-10 07:21] VITALS: BP 137/65; PULSE 89; RESP 18; TEMP 36.7; O2SAT 97
--- NOTE | 2021-10-10 07:26 | ED.NAVMDI ---
HPI - Nausea/Vomiting/Diarrhea General Chief complaint: Nausea/Vomiting/Diarrhea Stated complaint: ambulance Time Seen by Provider: 10/10/21 07:26 Source: patient, EMS and RN notes reviewed Mode of arrival: EMS Limitations: no limitations History of Present Illness HPI Narrative: Patient states that she began having nausea vomiting last evening about 10 30. She then began having diarrhea is just watery. Vomit turned into just bile and she is unable to keep anything down. As soon she would drink some water she vomited it back up. She says that she had abdominal pain when she vomits but when she is not vomiting she isn't having any abdominal pain. Has a consequence of all or vomiting she says her abdomen is sore but she denies any current severe abdominal pain. She denies any fever chills. She denies any urinary symptoms. In route patient was given Zofran 4 mg and started on LR fluids wide open. She already states she is feeling better. MD elicited complaint: nausea, vomiting and diarrhea Onset (ago): hour(s) (9) Description of vomiting: food contents and bilious Description of diarrhea: watery Associated nausea: Yes Associated abdominal pain: No Location of pain: none Exacerbating factors: eating Relieving factors: none Associated symptoms: weakness Related Data Home Medications Medication Instructions Recorded Confirmed amlodipine 2.5 mg tablet 2.5 mg PO DAILY 05/25/19 10/10/21 levothyroxine 88 mcg tablet 88 mcg PO DAILY 05/25/19 10/10/21 lisinopril 40 mg tablet 40 mg PO DAILY 05/25/19 10/10/21 omeprazole 20 mg capsule,delayed 20 mg PO DAILY 05/25/19 10/10/21 release pravastatin 40 mg tablet 40 mg PO DAILY 05/25/19 10/10/21 tramadol 50 mg tablet 50 mg PO Q6-8H PRN Pain 05/25/19 10/10/21 aspirin 81 mg chewable tablet 81 mg PO DAILY 08/09/19 10/10/21 (Pj Chewable Low Dose Aspirin) loratadine 10 mg tablet (Claritin) 10 mg PO DAILY PRN allergy symptoms 08/09/19 10/10/21 polyethylene glycol 3350 17 17 gm PO DAILY PRN constipation 08/09/19 10/10/21 gram/dose oral powder (Miralax) acetaminophen 325 mg capsule 325 mg PO ONCE PRN Pain 12/29/19 10/10/21 (Tylenol) cholecalciferol (vitamin D3) 25 25 mcg PO DAILY 12/29/19 10/10/21 mcg (1,000 unit) tablet (Vitamin D3) meclizine 25 mg tablet 25 mg PO BID PRN Dizziness 12/29/19 10/10/21 [id number]-min 1 tablet PO DAILY 12/29/19 10/10/21 3,300 unit-5 mg-200mg-75 unit tablet ER (ICaps) Allergies Allergy/AdvReac Type Severity Reaction Status Date / Time calcium carbonate Allergy Intermediate INDIGESTION Verified 01/07/20 11:37 AND CHEST TIGHTNESS hydrocodone Allergy Intermediate ITCHING Verified 01/07/20 11:37 caffeine AdvReac Mild indigestion Verified 01/07/20 11:37 [From Excedrin Migraine] Review of Systems Constitutional: Constitutional: Denies chills and Denies fever(s) ENT: Denies dizziness Cardiovascular: Cardiovascular: Denies chest pain PMFSH Past Medical History Medical History Arthritis Dyslipidemia GERD (gastroesophageal reflux disease) HTN (hypertension) Hx of colonic polyps Hypothyroid Social History Social History Years smoked: 7 Smoking status: Former smoker Tobacco type: cigarettes Alcohol intake: never Substance use type: does not use Exam Const: General: no acute distress, alert and ill appearing acutely Nutritional Appearance: well nourished Orientation/consciousness: patient oriented x3 Limitations: no limitations HENMT: Head: normal to inspection Ears: external ears normal General nose exam: Normal external nose present Face and sinus: normal facial exam Mouth: Yes dry mucous membranes Eyes: Conjunctivae: conjunctivae normal Pupils: Equal, round and reactive pupils present EOM: EOMs intact bilaterally Neck: Neck: normal visual inspection Resp: Effort & Inspecti
[2021-10-10 08:00] LABS: Basophils Absolute Auto 0.01 K/mm3 (0.00-0.10); Basophils Percent Auto 0.1 % (0.0-1.0); Eosinophils Absolute Auto 0.02 K/mm3 (0.02-0.50); Eosinophils Percent Auto 0.2 % (1.0-6.0); Hematocrit 46.4 % (35.0-42.0); Hemoglobin 15.1 g/dL (11.7-13.8); Immature Granulocyte Absolute 0.03 K/mm3 (0.00-0.00); Immature Granulocyte Percent A 0.3 % (0.0-0.0); Lymphocytes Absolute Auto 0.14 K/mm3 (1.10-4.50); Lymphocytes Percent Auto 1.2 % (18.0-42.0); Mean Corpuscular HGB Conc 32.5 g/dL (32.0-36.0); Mean Corpuscular Hemoglobin 29.7 pg (27.0-31.0); Mean Corpuscular Volume 91.2 fL (78.0-102.0); Mean Platelet Volume 11.2 fl (9.2-11.8); Monocytes Absolute Auto 0.26 K/mm3 (0.10-0.90); Monocytes Percent Auto 2.2 % (2.0-11.0); Neutrophils Absolute Auto 11.5 K/mm3 (1.7-7.2); Platelet Count Result 185 K/mm3 (150-420); Red Blood Count 5.09 M/mm3 (4.20-5.40); Red Cell Distribution Width 12.7 % (11.6-14.4)
[2021-10-10 08:10] LABS: Add Urine Microscopic? YES; Appearance Urine Clear (Clear); Bilirubin Urine 1+ (Negative); Blood Urine Negative (Negative); Color Urine Dark Yellow (Yellow); Glucose Urine UA Negative (Negative); Ketones Urine Trace (Negative); Leukocyte Esterase Ur Negative LEU/UL (Negative); Nitrate Urine Negative (Negative); Protein Urine 1+ (Negative); Specific Grav Ur >= 1.030 (1.010-1.020); Urobilinogen Urine 0.2 mg/dL (0.2-1.0)
[2021-10-10 08:14] LABS: Alanine Aminotransferase 20 U/L (14-59); Albumin Level 4.1 g/dL (3.4-5.0); Alkaline Phosphatase 102 U/L (46-116); Anion Gap 10 mmol/L (8-16); Aspartate Amino Transferase 16 U/L (15-37); Bilirubin,Total 0.9 mg/dL (0.00-1.00); Blood Urea Nitrogen 30 mg/dL (7-18); Calcium 9.4 mg/dL (8.5-10.1); Carbon Dioxide 25 mmol/L (21-32); Chloride 106 mmol/L (98-108); Estimated CRCL calculation 35 ml/min; Estimated Glomerular Filt Rate 44; Glucose 205 mg/dL (70-99); Lipase 104 U/L (73-393); Osmolality Calculated 304 mOsm/kg (285-295); Potassium 3.5 mmol/L (3.5-5.1); Sodium 141 mmol/L (136-145); Total Protein 7.9 g/dL (6.4-8.2)
[2021-10-10 08:17] LABS: Bacteria Urine Trace /hpf; Mucus Urine Few /lpf; RBC Urine 0-2 /hpf (0-2); Squamous Epithelial Cell Urine Moderate /hpf (Few); WBC Urine 0-3 /hpf (0-3)
[2021-10-10 08:18] LABS: Magnesium 2.2 mg/dL (1.8-2.4)
[2021-10-10 08:20] LABS: Lactic Acid Reflex 2.4 mmol/L (0.4-2.0)
[2021-10-10] MEDS: LACTATED RINGERS 1,000 ML 999 ML IV CONT (09:12)
[2021-10-10] MEDS: LACTATED RINGERS 1,000 ML 200 ML IV CONT (09:58)
--- NOTE | 2021-10-10 10:07 | PC.NURSE ---
pt up to bathroom x2 with assist of staff. sitting up in chair at bedside. clear soda and jello give to see if pt can tolerate. call dickey and warm blankets given.
[2021-10-10 10:55] LABS: Reflex Lactic Acid Yes or No Add Lactic
--- NOTE | 2021-10-10 11:06 | PCDIET ---
pt able to eat 1 cup of jello and drink parth mist soda without nausea or vomiting
--- NOTE | 2021-10-10 11:07 | PC.NURSE ---
pt ambulating to bathroom with sudhakar chavez, no difficulty noted.
[2021-10-10 11:46] LABS: Lactic Acid 3.4 mmol/L (0.4-2.0)
[2021-10-10 12:20] VITALS: BP 134/67; PULSE 79; RESP 20; TEMP 36.7; O2SAT 97
== END 2021-10-10 12:25 | disposition home or self-care (01) ==
PROVIDERS: Emergency Provider Emergency Medicine; PCP Internal Medicine
DX: K52.9 Noninfective gastroenteritis and colitis, unspecified (principal); E78.5 Hyperlipidemia, unspecified; K21.9 Gastro-esophageal reflux disease without esophagitis; I10 Essential (primary) hypertension; E03.9 Hypothyroidism, unspecified; Z87.891 Personal history of nicotine dependence
CPT/HCPCS: 36415; 74177; 80053; 81001; 83605; 83690; 83735; 85025; 86140; 87040; 96360; 96361; 99284; J7120; Q9967

== ENCOUNTER 2021-12-20 10:34 | Outpatient (CLI) | payer MEDICARE, SELFPAY ==
[2021-12-20 10:55] LABS: Basophils Absolute Auto 0.04 K/mm3 (0.00-0.10); Basophils Percent Auto 0.7 % (0.0-1.0); Eosinophils Percent Auto 5.1 % (1.0-6.0); Immature Granulocyte Absolute 0.02 K/mm3 (0.00-0.00); Immature Granulocyte Percent A 0.3 % (0.0-0.0); Lymphocytes Absolute Auto 1.68 K/mm3 (1.10-4.50); Lymphocytes Percent Auto 28.6 % (18.0-42.0); Mean Corpuscular HGB Conc 33.3 g/dL (32.0-36.0); Mean Corpuscular Hemoglobin 30.4 pg (27.0-31.0); Mean Corpuscular Volume 91.3 fL (78.0-102.0); Mean Platelet Volume 10.5 fl (9.2-11.8); Monocytes Absolute Auto 0.53 K/mm3 (0.10-0.90); Neutrophils Absolute Auto 3.3 K/mm3 (1.7-7.2); Neutrophils Percent Auto 56.3 % (50.0-70.0); Platelet Count Result 218 K/mm3 (150-420); Red Cell Distribution Width 12.5 % (11.6-14.4); White Blood Count 5.9 K/mm3 (4.8-10.8)
[2021-12-20 10:56] LABS: Add Urine Microscopic? NO; Appearance Urine Clear (Clear); Bilirubin Urine Negative (Negative); Blood Urine Negative (Negative); Color Urine Light Yellow (Yellow); Glucose Urine UA Negative (Negative); Ketones Urine Negative (Negative); Leukocyte Esterase Ur Negative (Negative); Nitrate Urine Negative (Negative); Protein Urine Negative (Negative); Specific Grav Ur <= 1.005 (1.010-1.020); Urobilinogen Urine 0.2 mg/dL (0.2-1.0)
[2021-12-20 11:07] LABS: Hemoglobin A1C 5.7 % (<5.7)
[2021-12-20 11:09] LABS: Creatinine Urine 44.39 mg/dL (40-278); MALB Creatinine Ratio 29.2 mg/g (0-30); Microalbumin Urine Random < 13.0 mg/L
[2021-12-20 11:29] LABS: Alanine Aminotransferase 44 U/L (14-59); Albumin Level 3.8 g/dL (3.4-5.0); Alkaline Phosphatase 93 U/L (46-116); Anion Gap 9 mmol/L (8-16); Aspartate Amino Transferase 16 U/L (15-37); Bilirubin,Total 0.9 mg/dL (0.00-1.00); Blood Urea Nitrogen 17 mg/dL (7-18); Calcium 9.3 mg/dL (8.5-10.1); Carbon Dioxide 28 mmol/L (21-32); Chloride 103 mmol/L (98-108); Cholesterol 201 mg/dL (0-200); Creatine Kinase 33 U/L (26-192); Estimated Glomerular Filt Rate > 60; Free T4 Free Thyroxine 1.22 ng/dL (0.76-1.46); Glucose 93 mg/dL (70-99); HDL Direct 66 mg/dL (40-60); LDL Cholesterol Calculated 112 mg/dL (<130); Osmolality Calculated 291 mOsm/kg (285-295); Potassium 3.6 mmol/L (3.5-5.1); Sodium 140 mmol/L (136-145); Thyroid Stimulating Hormone 0.44 uIU/mL (0.36-3.74); Total Protein 7.3 g/dL (6.4-8.2); Triglycerides 113 mg/dL (0-150)
[2021-12-25 12:50] LABS: Vitamin D 25 Hydroxy 35 ng/mL (30-100)
== END 2021-12-20 10:35 | disposition home or self-care (01) ==
LOC: CHSLAB 10:36
PROVIDERS: PCP Internal Medicine; Visit Provider Internal Medicine
DX: I10 Essential (primary) hypertension (principal); E78.2 Mixed hyperlipidemia; R73.01 Impaired fasting glucose; M81.0 Age-related osteoporosis without current pathological fracture; K27.7 Chronic peptic ulcer, site unspecified, without hemorrhage or perforation; E03.4 Atrophy of thyroid (acquired); E55.9 Vitamin D deficiency, unspecified
CPT/HCPCS: 36415; 80053; 80061; 81003; 82043; 82306; 82550; 83036; 84439; 84443; 84481; 85025

== ENCOUNTER 2022-01-29 08:28 | Outpatient (CLI) | payer MEDICARE, SELFPAY ==
--- NOTE | ~2022-01-29 | MM_ITS ---
EXAMINATION: MM screening flash BI w tripp HISTORY: Screening TECHNIQUE: Craniocaudal and mediolateral oblique 3-D tomosynthesis images were obtained and synthetic 2-D images were generated. CAD analysis was submitted and interpreted. COMPARISON: Comparison to multiple prior studies sequentially, with oldest reviewed study dated 05/13. BREAST PARENCHYMAL COMPOSITION: Breast composed of scattered areas of fibroglandular density FINDINGS: There are subtle asymmetries in the upper outer quadrant of the left breast which appears s lightly more prominent than on prior examinations. There is no evidence of suspicious mass, calcifica tion, or architectural distortion to suggest malignancy in the right breast. There has been no suspic ious interval change. IMPRESSION: 1. Subtle developing left breast asymmetries. 2. Additional mammographic views and possible breast ultrasound are recommended. BI-RADS Category 0: Incomplete: Needs additional imaging evaluation. Reviewed, dictated and finalized at location A. IMPRESSION: 1. Subtle developing left breast asymmetries. 2. Additional mammographic views and possible breast ultrasound are recommended . BI-RADS Category 0: Incomplete: Needs additional imaging evaluation.
== END 2022-01-29 08:29 | disposition home or self-care (01) ==
LOC: CHSIMG 08:30
PROVIDERS: PCP Internal Medicine; Visit Provider Internal Medicine
DX: Z12.31 Encounter for screening mammogram for malignant neoplasm of breast (principal)
CPT/HCPCS: 77063; 77067

== ENCOUNTER 2022-02-04 09:32 | Outpatient (CLI) | payer MEDICARE, SELFPAY ==
--- NOTE | ~2022-02-04 | MMUS_ITS ---
EXAMINATION: MM diagnostic flash LT w tripp, US breast LT limited HISTORY: Follow-up developing asymmetries TECHNIQUE: Additional 3-D tomosynthesis images of the left breast were performed and synthetic 2-D im ages were generated. CAD analysis was submitted and interpreted. High resolution Limited left breast ultrasound was performed. COMPARISON: 06/29/2018 BREAST PARENCHYMAL COMPOSITION: Breast composed of scattered areas of fibroglandular density FINDINGS: MAMMOGRAPHIC FINDINGS: There are no suspicious masses, calcifications or architectural distortion in the left breast. ULTRASOUND: Limited left breast ultrasound: At 2:00, 8 cm from the nipple, there is an oval hypoechoic mass measu ring 4 x 3 x 4 mm. There is parallel orientation, no posterior features and no internal vascularity. IMPRESSION: 1. Probable benign 4 mm left breast mass at 2:00, 8 cm from the nipple. 2. Recommend 6 month follow-up Limited left breast ultrasound BI-RADS category 3, probably benign findings. Reviewed, dictated and finalized at location A. IMPRESSION: 1. Probable benign 4 mm left breast mass at 2:00, 8 cm from the nipple. 2. Recommend 6 month follow-up Limited left breast ultrasound BI-RADS category 3, probably benign findings.
== END 2022-02-04 09:33 | disposition home or self-care (01) ==
LOC: CHSIMG 09:34
PROVIDERS: PCP Internal Medicine; Visit Provider Internal Medicine
DX: R92.8 Other abnormal and inconclusive findings on diagnostic imaging of breast (principal)
CPT/HCPCS: 76642; 77061; 77065; G0279

== ENCOUNTER 2022-03-29 08:17 | Outpatient (CLI) | payer MEDICARE, SELFPAY ==
--- NOTE | ~2022-03-29 | CT_ITS ---
EXAMINATION: CT abdomen wo/w con DATE: 03/29/2022 09:10 INDICATION: Left renal mass post surgery 1 year prior TECHNIQUE: Computed tomography (CT) of the abdomen and pelvis was performed without and with 100 mL O mnipaque-350 intravenous contrast. Automated exposure control and iterative reconstruction technique were employed. The dose-length product was 808.93 mGy-cm. COMPARISON: 10/10/2021 FINDINGS: Mild compressive atelectasis in the medial left lower lobe along side a chronic large sliding-type hi atal hernia containing the majority of the stomach. A couple noncalcified granulomata in the right mi ddle and lower lobes, unchanged since 05/01/2015. Heart size is normal. No pericardial or pleural effu michael. There are few hepatic cysts, the largest measuring 2.4 cm the left hepatic lobe. There are coup le small gallstones in the dependent aspect of the otherwise normal-appearing gallbladder. No gallbla dder dilation, wall thickening or pericholecystic inflammatory stranding to suggest acute cholecystit is. Spleen is normal. No significant change in size of a couple rim calcified splenic artery aneurysm s at the splenic hilum measuring 1.2 cm and 1.5 cm. The smaller aneurysm now appears largely thrombos ed which is new since the prior study. Small region of cortical scarring and adjacent fat necrosis at the posterior interpolar region of the left kidney at the site of a prior enhancing mass suggesting either interval partial nephrectomy or cryoablation. Interval decrease in size of a dorsally 14 x 14 x 14 mm, currently 12 x 9 x 12 mm region of soft tissue density at the site of the prior mass which f avors residual scarring or granulation tissue as opposed to recurrent disease. Right kidney is normal . Multiple diverticula along the descending colon without adjacent inflammatory stranding to suggest diverticulitis. No bowel obstruction. No pathologically enlarged abdominal lymphadenopathy. Thoracolu mbar levoscoliosis with severe spondylosis. IMPRESSION: 1. Decrease in size of a small region of soft tissue density likely representing scar scarring or gra nulation tissue at the site of a prior cryoablation or partial nephrectomy at the posterior interpola r region of the left kidney. No lesion suspicious for residual, recurrent or metastatic disease. 2. Large sliding-type hiatal hernia. 3. No change in size of a couple small saccular splenic artery aneurysms, one of which now appears th rombosed 4. Diverticulosis.. Reviewed, dictated and finalized at location A. SING FLAGMAN IMPRESSION: 1. Decrease in size of a small region of soft tissue density likely representin g scar scarring or granulation tissue at the site of a prior cryoablation or pa rtial nephrectomy at the posterior interpolar region of the left kidney. No les ion suspicious for residual, recurrent or metastatic disease. 2. Large sliding-type hiatal hernia. 3. No change in size of a couple small saccular splenic artery aneurysms, one o f which now appears thrombosed 4. Diverticulosis..
[2022-03-29 08:42] LABS: Estimated Glomerular Filt Rate 56
== END 2022-03-29 08:18 | disposition home or self-care (01) ==
LOC: CHSIMG 08:21
PROVIDERS: PCP Internal Medicine
DX: N28.89 Other specified disorders of kidney and ureter (principal)
CPT/HCPCS: 74170; Q9967

== ENCOUNTER 2022-06-01 09:21 | Outpatient (CLI) | payer MEDICARE, SELFPAY ==
--- NOTE | ~2022-06-01 | MR_ITS ---
MRI of the lumbar spine Clinical History: Spinal stenosis Technique: Axial T2-weighted images, and sagittal T1-weighted, T2-weighted, and T2 fat-sat images wer e acquired. COMPARISON: 09/16/2020 Findings: No acute fracture or subluxation identified. Mild levoscoliosis is similar to prior exam. N o suspicious bone marrow signal abnormality identified. There are mild reactive marrow signal changes due to underlying degenerative disc disease. At L1-L2, there is diffuse disc bulge and facet arthropathy, resulting in mild central canal stenosis /thecal sac compression. There is severe right neural foraminal narrowing. Left neural foramen preser stacey. At L2-L3, there is severe degenerative disc narrowing with diffuse disc bulge and facet arthropathy. There is moderate spinal canal stenosis/thecal sac compression, with prominent right lateral recess s tenosis. There is moderate to severe right neural foraminal narrowing. Left neural foramen preserved. At L3-L4, there is severe degenerative disc narrowing. Diffuse disc bulge and facet arthropathy resul t in severe spinal canal stenosis/thecal sac compression. There is severe right neural foraminal narr owing and moderate to severe left neural foraminal narrowing. At L4-L5, there is advanced degenerative disc disease with diffuse disc bulge. There is a superimpose d disc extrusion extending superiorly behind the L4 vertebral body in the left paracentral region. Th ere is severe left facet arthropathy. These findings all contribute to moderate spinal canal stenosis /thecal sac compression. There is severe left neural foraminal narrowing. Right neural foramen preser stacey. At L5-S1, there is disc bulge and facet arthropathy. There is minimal central canal stenosis. There i s severe left neural foraminal narrowing and probable moderate right neural foraminal narrowing. Paravertebral soft tissues are unremarkable. Impression: Advanced degenerative spondylosis, overall similar to prior exam. There is multifactorial severe spinal canal stenosis/thecal sac compression at L3-L4. There is multif actorial moderate spinal canal stenosis/thecal sac compression L4-L5, with a left paracentral disc ex trusion at this level. There is multifactorial moderate spinal canal stenosis/thecal sac compression at L2-L3. Multilevel severe neural foraminal narrowing, as detailed above. Reviewed, dictated and finalized at location M. ESTATE CLOSING COORDINATOR Impression: Advanced degenerative spondylosis, overall similar to prior exam. There is multifactorial severe spinal canal stenosis/thecal sac compression at L3-L4. There is multifactorial moderate spinal canal stenosis/thecal sac compre ssion L4-L5, with a left paracentral disc extrusion at this level. There is mul tifactorial moderate spinal canal stenosis/thecal sac compression at L2-L3. Multilevel severe neural foraminal narrowing, as detailed above.
== END 2022-06-01 09:22 | disposition home or self-care (01) ==
LOC: CHSIMG 09:22
PROVIDERS: PCP Internal Medicine
DX: M48.062 Spinal stenosis, lumbar region with neurogenic claudication (principal); M43.06 Spondylolysis, lumbar region; M51.06 Intervertebral disc disorders with myelopathy, lumbar region
CPT/HCPCS: 72148

== ENCOUNTER 2022-07-03 09:49 | Outpatient (CLI) | payer MEDICARE, SELFPAY ==
[2022-07-03 10:31] LABS: Anion Gap 9 mmol/L (8-16); Blood Urea Nitrogen 25 mg/dL (7-18); Calcium 9.5 mg/dL (8.5-10.1); Carbon Dioxide 33 mmol/L (21-32); Chloride 104 mmol/L (98-108); Estimated Glomerular Filt Rate 51; Glucose 102 mg/dL (70-99); Osmolality Calculated 306 mOsm/kg (285-295); Potassium 3.8 mmol/L (3.5-5.1); Sodium 146 mmol/L (136-145)
== END 2022-07-03 09:50 | disposition home or self-care (01) ==
LOC: CHSLAB 09:51
PROVIDERS: PCP Internal Medicine; Visit Provider Internal Medicine
DX: I10 Essential (primary) hypertension (principal)
CPT/HCPCS: 36415; 80048

== ENCOUNTER 2022-07-15 10:37 | Outpatient (CLI) | payer MEDICARE, SELFPAY ==
[2022-07-15 10:50] LABS: Basophils Absolute Auto 0.03 K/mm3 (0.00-0.10); Basophils Percent Auto 0.4 % (0.0-1.0); Eosinophils Absolute Auto 0.26 K/mm3 (0.02-0.50); Eosinophils Percent Auto 3.8 % (1.0-6.0); Hematocrit 41.8 % (35.0-42.0); Immature Granulocyte Absolute 0.02 K/mm3 (0.00-0.00); Immature Granulocyte Percent A 0.3 % (0.0-0.0); Lymphocytes Absolute Auto 1.69 K/mm3 (1.10-4.50); Lymphocytes Percent Auto 24.9 % (18.0-42.0); Mean Corpuscular HGB Conc 33.5 g/dL (32.0-36.0); Mean Corpuscular Hemoglobin 30.8 pg (27.0-31.0); Mean Corpuscular Volume 92.1 fL (78.0-102.0); Mean Platelet Volume 10.4 fl (9.2-11.8); Monocytes Absolute Auto 0.74 K/mm3 (0.10-0.90); Monocytes Percent Auto 10.9 % (2.0-11.0); Neutrophils Percent Auto 59.7 % (50.0-70.0); Platelet Count Result 208 K/mm3 (150-420); Red Blood Count 4.54 M/mm3 (4.20-5.40); Red Cell Distribution Width 12.3 % (11.6-14.4); White Blood Count 6.8 K/mm3 (4.8-10.8)
[2022-07-15 10:53] LABS: Appearance Urine Slightly Cloudy (Clear); Bilirubin Urine Negative (Negative); Blood Urine 1+ (Negative); Color Urine Light Yellow (Yellow); Glucose Urine UA Negative (Negative); Ketones Urine Negative (Negative); Leukocyte Esterase Ur 3+ (Negative); Nitrate Urine Negative (Negative); Protein Urine Negative (Negative); pH Urine 6.5 (5.0-8.0)
[2022-07-15 10:59] LABS: Add Urine Microscopic? YES
[2022-07-15 11:00] LABS: Bacteria Urine Trace /hpf; RBC Urine 0-2 /hpf (0-2); Squamous Epithelial Cell Urine Few /hpf (Few); WBC Urine 31-50 /hpf (0-3)
[2022-07-15 11:15] LABS: Hemoglobin A1C 5.8 % (<5.7)
[2022-07-15 11:40] LABS: Alanine Aminotransferase 27 U/L (14-59); Albumin Level 3.8 g/dL (3.4-5.0); Alkaline Phosphatase 99 U/L (46-116); Anion Gap 8 mmol/L (8-16); Aspartate Amino Transferase 19 U/L (15-37); Bilirubin,Total 0.8 mg/dL (0.00-1.00); Blood Urea Nitrogen 23 mg/dL (7-18); Calcium 9.5 mg/dL (8.5-10.1); Carbon Dioxide 32 mmol/L (21-32); Chloride 104 mmol/L (98-108); Cholesterol 186 mg/dL (0-200); Estimated Glomerular Filt Rate 51; Free T3 2.63 pg/mL (2.18-3.98); Free T4 Free Thyroxine 1.44 ng/dL (0.76-1.46); Glucose 102 mg/dL (70-99); HDL Direct 64 mg/dL (40-60); LDL Cholesterol Calculated 96 mg/dL (<130); Osmolality Calculated 301 mOsm/kg (285-295); Potassium 3.6 mmol/L (3.5-5.1); Sodium 144 mmol/L (136-145); Thyroid Stimulating Hormone 0.25 uIU/mL (0.36-3.74); Total Protein 7.2 g/dL (6.4-8.2); Triglycerides 130 mg/dL (0-150)
== END 2022-07-15 10:38 | disposition home or self-care (01) ==
LOC: CHSLAB 10:40
PROVIDERS: PCP Internal Medicine; Visit Provider Internal Medicine
DX: E03.4 Atrophy of thyroid (acquired) (principal); I10 Essential (primary) hypertension; R73.01 Impaired fasting glucose; E78.2 Mixed hyperlipidemia; R82.90 Unspecified abnormal findings in urine
CPT/HCPCS: 36415; 80053; 80061; 81001; 83036; 84439; 84443; 84481; 85025; 87086; 87088

== ENCOUNTER 2022-08-29 09:22 | Outpatient (CLI) | payer MEDICARE, SELFPAY ==
[2022-08-29 10:19] LABS: Anion Gap 9 mmol/L (8-16); Blood Urea Nitrogen 25 mg/dL (7-18); Calcium 9.2 mg/dL (8.5-10.1); Carbon Dioxide 29 mmol/L (21-32); Chloride 103 mmol/L (98-108); Estimated Glomerular Filt Rate 51; Free T4 Free Thyroxine 1.31 ng/dL (0.76-1.46); Glucose 92 mg/dL (70-99); Osmolality Calculated 296 mOsm/kg (285-295); Potassium 3.7 mmol/L (3.5-5.1); Sodium 141 mmol/L (136-145); Thyroid Stimulating Hormone 0.41 uIU/mL (0.36-3.74)
== END 2022-08-29 09:23 | disposition home or self-care (01) ==
LOC: CHSLAB 09:24
PROVIDERS: PCP Internal Medicine; Visit Provider Internal Medicine
DX: E86.0 Dehydration (principal); E03.9 Hypothyroidism, unspecified
CPT/HCPCS: 36415; 80048; 84439; 84443; 84481

== ENCOUNTER 2023-01-20 08:49 | Outpatient (CLI) | payer MEDICARE, SELFPAY ==
--- NOTE | ~2023-01-20 | MMUS_ITS ---
EXAMINATION: MM diagnostic flash BI w tripp, US breast LT limited HISTORY: Follow-up for probably benign left breast mass TECHNIQUE: Craniocaudal, mediolateral, and mediolateral oblique 3-D tomosynthesis images of the judithas ts were performed and synthetic 2-D images were generated. CAD analysis was submitted and interpreted . High resolution limited left breast ultrasound was performed. COMPARISON: 02/04/2022, 01/29/2022, 12/03/2019 BREAST PARENCHYMAL COMPOSITION: There are scattered areas of fibroglandular density. FINDINGS: MAMMOGRAPHIC FINDINGS: No suspicious mass, calcification, or architectural distortion are identified in either breast to sug gest malignancy. There has been no suspicious interval change. ULTRASOUND: There is a 5 mm x 3 mm oval, hypoechoic mass with some lobulations of the margin, no posterior featur es, and no internal vascularity at the 2:00 location, 8 cm from the nipple. IMPRESSION: 1. Stable, probably benign left breast mass. 2. Given one year of interval stability, recommend 12 month followup bilateral diagnostic mammogram a nd left breast ultrasound. BI-RADS category 3, probably benign findings. Reviewed, dictated and finalized at location A. IMPRESSION: 1. Stable, probably benign left breast mass. 2. Given one year of interval stability, recommend 12 month followup bilateral diagnostic mammogram and left breast ultrasound. BI-RADS category 3, probably benign findings.
== END 2023-01-20 08:50 | disposition home or self-care (01) ==
LOC: CHSIMG 08:51
PROVIDERS: PCP Internal Medicine; Visit Provider Internal Medicine
DX: R92.8 Other abnormal and inconclusive findings on diagnostic imaging of breast (principal)
CPT/HCPCS: 76642; 77062; 77066; G0279

== ENCOUNTER 2023-01-23 09:23 | Outpatient (CLI) | payer MEDICARE, SELFPAY ==
[2023-01-23 09:35] LABS: Basophils Absolute Auto 0.04 K/mm3 (0.00-0.10); Basophils Percent Auto 0.6 % (0.0-1.0); Eosinophils Absolute Auto 0.34 K/mm3 (0.02-0.50); Eosinophils Percent Auto 5.2 % (1.0-6.0); Hemoglobin 13.7 g/dL (11.7-13.8); Immature Granulocyte Absolute 0.02 K/mm3 (0.00-0.00); Immature Granulocyte Percent A 0.3 % (0.0-0.0); Lymphocytes Absolute Auto 2.19 K/mm3 (1.10-4.50); Lymphocytes Percent Auto 33.3 % (18.0-42.0); Mean Corpuscular HGB Conc 33.4 g/dL (32.0-36.0); Mean Corpuscular Hemoglobin 30.6 pg (27.0-31.0); Mean Corpuscular Volume 91.7 fL (78.0-102.0); Mean Platelet Volume 10.2 fl (9.2-11.8); Monocytes Absolute Auto 0.55 K/mm3 (0.10-0.90); Monocytes Percent Auto 8.4 % (2.0-11.0); Neutrophils Absolute Auto 3.4 K/mm3 (1.7-7.2); Neutrophils Percent Auto 52.2 % (50.0-70.0); Platelet Count Result 218 K/mm3 (150-420); Red Blood Count 4.47 M/mm3 (4.20-5.40); Red Cell Distribution Width 11.9 % (11.6-14.4); White Blood Count 6.6 K/mm3 (4.8-10.8)
[2023-01-23 09:47] LABS: Appearance Urine Clear (Clear); Bilirubin Urine Negative (Negative); Blood Urine 1+ (Negative); Color Urine Yellow (Yellow); Glucose Urine UA Negative (Negative); Ketones Urine Negative (Negative); Leukocyte Esterase Ur 3+ (Negative); Nitrate Urine Negative (Negative); Protein Urine Negative (Negative); Urobilinogen Urine 0.2 mg/dL (0.2-1.0)
[2023-01-23 09:53] LABS: Add Urine Microscopic? YES; WBC Urine >75 /hpf (0-3)
[2023-01-23 09:54] LABS: Bacteria Urine Trace /hpf; Squamous Epithelial Cell Urine Rare /hpf (Few)
[2023-01-23 10:04] LABS: Hemoglobin A1C 5.4 % (<5.7)
[2023-01-23 10:23] LABS: Alanine Aminotransferase 19 U/L (14-59); Albumin Level 3.9 g/dL (3.4-5.0); Alkaline Phosphatase 78 U/L (46-116); Anion Gap 10 mmol/L (8-16); Aspartate Amino Transferase 18 U/L (15-37); Bilirubin,Total 0.7 mg/dL (0.00-1.00); Blood Urea Nitrogen 30 mg/dL (7-18); Calcium 9.7 mg/dL (8.5-10.1); Carbon Dioxide 27 mmol/L (21-32); Chloride 105 mmol/L (98-108); Cholesterol 168 mg/dL (0-200); Creatine Kinase 84 U/L (26-192); Estimated Glomerular Filt Rate 45; Free T4 Free Thyroxine 1.47 ng/dL (0.76-1.46); Glucose 92 mg/dL (70-99); HDL Direct 63 mg/dL (40-60); LDL Cholesterol Calculated 86 mg/dL (<130); Osmolality Calculated 300 mOsm/kg (285-295); Sodium 142 mmol/L (136-145); Thyroid Stimulating Hormone 0.18 uIU/mL (0.36-3.74); Total Protein 6.8 g/dL (6.4-8.2); Triglycerides 94 mg/dL (0-150)
== END 2023-01-23 09:24 | disposition home or self-care (01) ==
PROVIDERS: PCP Internal Medicine; Visit Provider Internal Medicine
DX: I10 Essential (primary) hypertension (principal); E78.2 Mixed hyperlipidemia; R73.01 Impaired fasting glucose; R31.29 Other microscopic hematuria; E03.4 Atrophy of thyroid (acquired)
CPT/HCPCS: 36415; 80053; 80061; 81001; 82550; 83036; 84439; 84443; 84481; 85025; 87086; 87088

== ENCOUNTER 2023-03-07 10:48 | Outpatient (CLI) | payer MEDICARE, SELFPAY ==
[2023-03-07 11:32] LABS: Anion Gap 7 mmol/L (8-16); Blood Urea Nitrogen 23 mg/dL (7-18); Calcium 9.3 mg/dL (8.5-10.1); Carbon Dioxide 31 mmol/L (21-32); Chloride 104 mmol/L (98-108); Estimated Glomerular Filt Rate 47; Glucose 95 mg/dL (70-99); Osmolality Calculated 297 mOsm/kg (285-295); Potassium 4.2 mmol/L (3.5-5.1); Sodium 142 mmol/L (136-145)
== END 2023-03-07 10:49 | disposition home or self-care (01) ==
PROVIDERS: PCP Internal Medicine; Visit Provider Internal Medicine
DX: I10 Essential (primary) hypertension (principal)
CPT/HCPCS: 36415; 80048

== ENCOUNTER 2023-03-26 09:35 | Outpatient (CLI) | payer MEDICARE, SELFPAY ==
--- NOTE | ~2023-03-26 | CT_ITS ---
CT of the Abdomen: Indication: Left renal mass Technique: 2.5 mm axial scans were obtained through the abdomen prior to and following intravenous a dministration of 100 cc of Omnipaque 350. Dose reduction technique was used on this scan by utilizing automated exposure control and iterative reconstruction technique. The dose-length product (DLP) was 606.52 mGy-cm. COMPARISON: 03/29/2022 Findings: Scans through the lung bases demonstrate right middle lobe pulmonary nodule, similar to pr ior exam. Large hiatal hernia present, containing nearly entire stomach. Stable hepatic cysts noted. The spleen, pancreas, gallbladder, adrenals and right kidney are within n ormal limits. Stable focal scarring and probable fat necrosis at the left kidney, compatible with pos toperative/post ablation change, mildly decreased in extent from prior exam. There are atheroscleroti c calcifications of the aorta. No lymphadenopathy. Visualized bowel loops are unremarkable. No ascites. Impression: Mild interval decrease in postoperative/post ablative change at the left kidney. No suspicious mass o r recurrence evident. Large hiatal hernia, containing essentially the entire stomach. Stable right middle lobe pulmonary nodules. Reviewed, dictated and finalized at location . TESTS CHECKER Impression: Mild interval decrease in postoperative/post ablative change at the left kidney . No suspicious mass or recurrence evident. Large hiatal hernia, containing essentially the entire stomach. Stable right middle lobe pulmonary nodules.
== END 2023-03-26 09:36 | disposition home or self-care (01) ==
LOC: CHSIMG 09:38
PROVIDERS: PCP Internal Medicine
DX: N28.89 Other specified disorders of kidney and ureter (principal); K44.9 Diaphragmatic hernia without obstruction or gangrene; R91.1 Solitary pulmonary nodule
CPT/HCPCS: 74170; Q9967

== ENCOUNTER 2023-04-01 08:01 | Outpatient (CLI) | payer MEDICARE, SELFPAY ==
--- NOTE | ~2023-04-01 | XR_ITS ---
EXAMINATION: XR enema water soluble DATE: 04/01/2023 08:55 INDICATION: Colovaginal fistula. TECHNIQUE: A arresting gear operator radiograph was obtained. A catheter was inserted into the patient's rectum. Contra st was infused by gravity. Fluoroscopic spot images and conventional radiographs were obtained. Fluor oscopy exposure time was 0.5 minutes. The total number of images was 38. COMPARISON: CT abdomen 03/26/2023 FINDINGS: There are scattered diverticula in the colon. No abnormal mass or stricture. No fistula. Th ere are bilateral total hip arthroplasties. IMPRESSION: 1. No fistula. Reviewed, dictated and finalized at location A. R QUALITY ANALYST IMPRESSION: 1. No fistula.
== END 2023-04-01 08:02 | disposition home or self-care (01) ==
PROVIDERS: PCP Internal Medicine; Visit Provider Internal Medicine
DX: N82.4 Other female intestinal-genital tract fistulae (principal)
CPT/HCPCS: 74270

== ENCOUNTER 2023-09-22 09:13 | Outpatient (CLI) | payer MEDICARE, SELFPAY ==
[2023-09-22 09:49] LABS: Basophils Absolute Auto 0.03 K/mm3 (0.00-0.10); Basophils Percent Auto 0.4 % (0.0-1.0); Eosinophils Absolute Auto 0.25 K/mm3 (0.02-0.50); Eosinophils Percent Auto 3.5 % (1.0-6.0); Hematocrit 45.1 % (35.0-42.0); Hemoglobin 14.8 g/dL (11.7-13.8); Immature Granulocyte Absolute 0.02 K/mm3 (0.00-0.00); Immature Granulocyte Percent A 0.3 % (0.0-0.0); Lymphocytes Absolute Auto 1.77 K/mm3 (1.10-4.50); Lymphocytes Percent Auto 24.9 % (18.0-42.0); Mean Corpuscular HGB Conc 32.8 g/dL (32-36); Mean Corpuscular Hemoglobin 29.8 pg (27.0-31.0); Mean Corpuscular Volume 90.7 fL (78.0-102.0); Mean Platelet Volume 9.9 fl (9.2-11.8); Monocytes Absolute Auto 0.55 K/mm3 (0.10-0.90); Monocytes Percent Auto 7.7 % (2.0-11.0); Neutrophils Absolute Auto 4.48 K/mm3 (1.70-7.20); Neutrophils Percent Auto 63.2 % (50.0-70.0); Platelet Count Result 214 K/mm3 (150-420); Red Blood Count 4.97 M/mm3 (4.20-5.40); Red Cell Distribution Width 12.1 % (11.6-14.4); White Blood Count 7.1 K/mm3 (4.8-10.8)
[2023-09-22 09:53] LABS: Appearance Urine Clear (Clear); Bilirubin Urine 1+ (Negative); Blood Urine Trace-intact (Negative); Color Urine Light Yellow (Yellow); Glucose Urine UA Negative (Negative); Ketones Urine Negative (Negative); Leukocyte Esterase Ur 2+ LEU/UL (Negative); Nitrate Urine Negative (Negative); Protein Urine Negative (Negative)
[2023-09-22 10:00] LABS: Hemoglobin A1C 5.5 % (<5.7)
[2023-09-22 10:02] LABS: Add Urine Microscopic? YES; Bacteria Urine 2+ /hpf; RBC Urine 0-2 /hpf (0-2); Squamous Epithelial Cell Urine Moderate /hpf (Few)
[2023-09-22 10:33] LABS: Alanine Aminotransferase 23 U/L (14-59); Alkaline Phosphatase 83 U/L (46-116); Anion Gap 12 mmol/L (4-12); Aspartate Amino Transferase 23 U/L (15-37); Blood Urea Nitrogen 22 mg/dL (7-18); Calcium 9.4 mg/dL (8.5-10.1); Carbon Dioxide 27 mmol/L (21-32); Chloride 103 mmol/L (98-108); Cholesterol 216 mg/dL (0-200); Creatine Kinase 55 U/L (26-192); Estimated Glomerular Filt Rate 58; Free T3 2.56 pg/mL (2.18-3.98); Free T4 Free Thyroxine 1.31 ng/dL (0.76-1.46); Glucose 91 mg/dL (70-99); HDL Direct 69 mg/dL (40-60); LDL Cholesterol Calculated 126 mg/dL (<130); Osmolality Calculated 297 mOsm/kg (285-295); Potassium 3.8 mmol/L (3.5-5.1); Sodium 142 mmol/L (136-145); Thyroid Stimulating Hormone 0.38 uIU/mL (0.36-3.74); Total Protein 7.4 g/dL (6.4-8.2); Triglycerides 103 mg/dL (0-150)
[2023-09-23 09:54] LABS: Vitamin D 25 Hydroxy 35 ng/mL (30-100)
== END 2023-09-22 09:14 | disposition home or self-care (01) ==
LOC: CHSLAB 09:16
PROVIDERS: PCP Internal Medicine; Visit Provider Internal Medicine
DX: N39.0 Urinary tract infection, site not specified (principal); I10 Essential (primary) hypertension; E78.2 Mixed hyperlipidemia; E55.9 Vitamin D deficiency, unspecified; E03.4 Atrophy of thyroid (acquired); R73.01 Impaired fasting glucose
CPT/HCPCS: 36415; 80053; 80061; 81001; 82306; 82550; 83036; 84439; 84443; 84481; 85025; 87086; 87088

== ENCOUNTER 2024-02-05 09:41 | Outpatient (CLI) | payer MEDICARE, SELFPAY ==
--- NOTE | ~2024-02-05 | MMUS_ITS ---
EXAMINATION: MM diagnostic flash BI w tripp, US breast LT limited HISTORY: Probable benign left breast mass TECHNIQUE: 3-D tomosynthesis images of the breasts were performed and synthetic 2-D images were gener ated. CAD analysis was submitted and interpreted. High resolution limited left breast ultrasound was performed. COMPARISON: 01/20/2023, 02/04/2022 BREAST PARENCHYMAL COMPOSITION:Not Dense. There are scattered areas of fibroglandular density. FINDINGS: MAMMOGRAPHIC FINDINGS: Parenchymal pattern of both breasts is unchanged. No suspicious mammographic mass or distortion seen. No suspicious mammographic or calcification. ULTRASOUND: 5 x 3 x 4 mm hypoechoic wider than tall mass at the 2:00 position left breast, 8 cm from the nipple, is essentially unchanged from prior exams. IMPRESSION: No evidence for malignancy. Stable subcentimeter left breast mass seen sonographically, as detailed above. Stability since 2021 is compatible with benignity. BI-RADS Category 2: Benign finding(s). Reviewed, dictated and finalized at location . IMPRESSION: No evidence for malignancy. Stable subcentimeter left breast mass seen sonogra phically, as detailed above. Stability since 2021 is compatible with benignity. BI-RADS Category 2: Benign finding(s).
== END 2024-02-05 09:42 | disposition home or self-care (01) ==
PROVIDERS: PCP Internal Medicine; Visit Provider Internal Medicine
DX: R92.8 Other abnormal and inconclusive findings on diagnostic imaging of breast (principal)
CPT/HCPCS: 76642; 77062; 77066; G0279

== ENCOUNTER 2024-04-06 10:32 | Outpatient (CLI) | payer MEDICARE, SELFPAY ==
[2024-04-06 10:47] LABS: Hematocrit 45.1 % (35.0-42.0); Hemoglobin 15.2 g/dL (11.7-13.8); Mean Corpuscular HGB Conc 33.7 g/dL (32-36); Mean Corpuscular Hemoglobin 30.7 pg (27.0-31.0); Mean Corpuscular Volume 91.1 fL (78.0-102.0); Mean Platelet Volume 10.2 fl (9.2-11.8); Platelet Count Result 218 K/mm3 (150-420); Red Blood Count 4.95 M/mm3 (4.20-5.40); Red Cell Distribution Width 12.4 % (11.6-14.4)
[2024-04-06 10:49] LABS: Add Urine Microscopic? YES; Appearance Urine Sl Cloudy (Clear); Bilirubin Urine 1+ (Negative); Blood Urine Negative (Negative); Color Urine Yellow (Yellow); Glucose Urine UA Negative (Negative); Ketones Urine Trace (Negative); Leukocyte Esterase Ur 2+ (Negative); Nitrate Urine Negative (Negative); Protein Urine Trace (Negative); Specific Grav Ur 1.015 (1.010-1.020)
[2024-04-06 11:08] LABS: Bacteria Urine 2+ /hpf; RBC Urine None seen /hpf (0-2); Squamous Epithelial Cell Urine Moderate /hpf (Few)
[2024-04-06 11:10] LABS: Creatinine Urine 198.73 mg/dL (40-278); MALB Creatinine Ratio 38.7 mg/g (0-30); Microalbumin Urine Random 77.1 mg/L
[2024-04-06 11:12] LABS: Hemoglobin A1C 5.5 % (<5.7)
[2024-04-06 11:59] LABS: Alanine Aminotransferase 19 U/L (14-59); Alkaline Phosphatase 102 U/L (46-116); Anion Gap 7 mmol/L (4-12); Aspartate Amino Transferase 16 U/L (15-37); Bilirubin,Total 0.9 mg/dL (0.00-1.00); Blood Urea Nitrogen 19 mg/dL (7-18); Calcium 9.4 mg/dL (8.5-10.1); Carbon Dioxide 30 mmol/L (21-32); Chloride 105 mmol/L (98-108); Cholesterol 193 mg/dL (0-200); Creatine Kinase 52 U/L (26-192); Estimated Glomerular Filt Rate 57; Glucose 88 mg/dL (70-99); HDL Direct 70 mg/dL (40-60); LDL Cholesterol Calculated 100 mg/dL (<130); Osmolality Calculated 295 mOsm/kg (285-295); Sodium 142 mmol/L (136-145); Thyroid Stimulating Hormone 0.71 uIU/mL (0.36-3.74); Triglycerides 117 mg/dL (0-150)
== END 2024-04-06 10:33 | disposition home or self-care (01) ==
LOC: CHSLAB 10:35
PROVIDERS: PCP Internal Medicine; Visit Provider Internal Medicine
DX: E78.5 Hyperlipidemia, unspecified (principal); I10 Essential (primary) hypertension; R73.01 Impaired fasting glucose
CPT/HCPCS: 36415; 80053; 80061; 81001; 82043; 82550; 83036; 84443; 85027

== ENCOUNTER 2024-08-17 11:00 | Outpatient (RCR) | payer SELFPAY | END 2024-09-13 23:59 | disposition home or self-care (01) | LOC: ANHBWCAUD 11:00 | PROVIDERS: PCP Internal Medicine; Visit Provider Internal Medicine | DX: Z46.1 Encounter for fitting and adjustment of hearing aid (principal) | CPT/HCPCS: 99199; V5261 ==

== ENCOUNTER 2024-10-04 08:23 | Outpatient (RCR) | payer MEDICARE, SELFPAY | END 2025-01-02 23:59 | disposition home or self-care (01) | LOC: CHSAUDIO 08:23 | PROVIDERS: PCP Internal Medicine; Visit Provider Internal Medicine | DX: Z46.1 Encounter for fitting and adjustment of hearing aid (principal) | CPT/HCPCS: 99199 ==

== ENCOUNTER 2024-10-26 10:11 | Outpatient (CLI) | payer MEDICARE, SELFPAY ==
--- OUTSIDE RECORDS SUMMARY | 2024-10-26 10:21 | XMS_ITS | Encounter Summary ---
Author Organization [facility] Address [address] [place] [address] Care Team Providers Care Granulator Machine Operator Name Role Phone El Johnson MD Primary Care Provider [phone] Preston Ratliff DO Unavailable [phone] Encounter Details Date Type Department Care Team (Late st Contact Info) Description 05/08/2018 [facility] Outpatient Visit [facility] Orthopedics - Radiology [address] [place] [address] Document, Scanned Social History Tobacco Use Types Packs/Day Years Used Date Smoking Tobacco: Former Smokeless Tobacco: Never Comments Unknown Sex and Gender Information Value Date Recorded Sex Assigned at Not on file Legal Sex Female 2:15 PM CDT Gender Identity Not on file Sexual Orientation Not on file documented as of this encounter Plan of Treatment Not on file documented as of this encounter Visit Diagnoses Not on filedocumented in this encounter Care Teams Granulator Machine Operator Relationship Specialty Start Date End Date El Johnson MD PCP - General Internal Medicine 02/24/18 Preston Ratliff DO Orthopedic Surgery 02/24/18 documented as of this encounter
--- OUTSIDE RECORDS SUMMARY | 2024-10-26 10:21 | XMS_ITS | Encounter Summary ---
Author Organization [facility] Address [address] [place] [address] Care Team Providers Care Corporate Manager Name Role Phone El Johnson MD Primary Care Provider [phone] Preston Ratliff DO Unavailable [phone] Encounter Details Date Type Department Care Team (Late st Contact Info) Description 03/01/2020 [facility] Outpatient Visit [facility] Orthopedics - Radiology [address] [place] [address] Preston Ratliff, DO [address] [id number] Social History Tobacco Use Types Packs/Day Years Used Date Smoking Tobacco: Former Cigarettes S tarted: 04/21/1973 Smokeless Tobacco: Never Alcohol Use Standard Drinks/Week Comments No 0 (1 standard drink = 0.6 oz pur e alcohol) Comments Unknown Sex and Gender Information Value Date Recorded Sex Assigned at Not on file Legal Sex Female 2:15 PM CDT Gender Identity Not on file Sexual Orientation Not on file COVID-19 Exposure Response Date Recorded In the last month, have you been in contact with someone who was confirmed or suspected to have Coronavirus / COVID-19? 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
--- OUTSIDE RECORDS SUMMARY | 2024-10-26 10:21 | XMS_ITS | Clinical Summary ---
Author Organization [facility] Address [address] [place] [address] Care Team Providers Care Termite Control Technician Name Role Phone El Johnson MD Primary Care Provider [phone] Preston Ratliff DO Unavailable [phone] Source Comments [facility],non-owned Affiliates and Associated Physician Practices is amultiple site organization consisting of ambulatory clinics and hospital sitesin [place], [place] and [place]. This disclosure is being madepursuant to the Care Everywhere program and may not contain all information available regarding this patient. Last updated 18.[facility] Allergies Active Allergy Reactions Criticality Noted Date Comments Excedrin GI Discomfort 2018 Gabapentin Dizziness 05/30/2022 Hydrocodone-Acetaminophen Rash Medium 2018 Medications * Be aware that medications may not be up to date on this document. Alwaysverify current medications with the patient. lisinopril (PRINIVIL; ZESTRIL) 40 MG tablet Take 1 (one) tablet by mouth once daily Active amLODIPine (NORVASC) 2.5 MG tablet Take 2 (two) tablets by mouth once daily Active omeprazole (PRILOSEC) 20 MG capsule Take 1 (one) capsule by mouth daily before breakfast Active pravastatin (PRAVACHOL) 40 MG tablet Take 1 (one) tablet by mouth at bedtime Active Vitamin D, Cholecalciferol , 1000 UNITS CAPS Active aspirin (Aspirin) 81 MG chew tablet Take 1 (one) tablet by mouth once daily Active traMADol (ULTRAM) 50 MG tablet Take 1 (one) tablet by mouth every 6 hours as needed for Pain Active Acetaminophen (TYLENOL 8 HOUR PO) Take 500 mg by mouth Active meclizine (ANTIVERT) 25 MG tablet Take 1 (one) tablet by mouth 3 times daily as needed for Dizziness Active Polyethylene Glycol 3350 (MIRALAX PO) Active Loratadine (CLARITIN PO) Active levothyroxine (Synthroid) 88 MCG tablet Take 1 (one) tablet by mouth daily before breakfast Active Propylene Glycol (SYSTANE BALANCE OP) Active Specialty Vitamins Products (ICaps Lutein & Zeaxanthin) tablet Take 1 (one) tablet by mouth daily with food Active Potassium Chloride (KLOR-CON PO) Active hydroCHLOROthia zide (Hydrodiuril) 12.5 MG Take 2 (two) tablets by mouth once daily Active Active Problems No known active problems Social History Tobacco Use Types Packs/Day Years Used Date Smoking Tobacco: Former Cigarettes S tarted: 04/21/1973 Smokeless Tobacco: Never Tobacco Cessation:Counseling Given: Not Answered Alcohol Use Standard Drinks/Week Comments No 0 (1 standard drink = 0.6 oz pur e alcohol) Comments Unknown Sex and Gender Information Value Date Recorded Sex Assigned at Not on file Legal Sex Female 2:15 PM CDT Gender Identity Not on file Sexual Orientation Not on file Last Filed Vital Signs Vital Sign Reading Time Taken Comments Blood Pressure 144/71 09/02/2022 7:10 AM CDT Pulse 75 09/02/2022 7:10 AM CDT Temperature 37.2 C (98.9 F) 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 Respiratory Rate 18 09/02/2022 7:10 AM CDT Oxygen Saturation 97% 09/02/2022 7:10 AM CDT Inhaled Oxygen Concentration - - Weight 83 kg (183 lb) 09/02/2022 6:35 AM CDT Height 157.5 cm (5' 2) 09/02/2022 6:35 AM CDT Body Mass Index 33.47 09/02/2022 6:35 AM CDT Plan of Treatment Health Maintenance Due Date Last Done Comments BONE DENSITY TESTING 1945 DTAP/TDAP/TD VACCINES (1 - Tdap) 02/23/1963 PNEUMOCOCCAL VACCINE 50+ (1 of 1 - PCV) 02/23/1994 ZOSTER VACCINE (1 of 2) 02/23/1994 Respiratory Syncytial Virus (RSV) Vaccine Pt: or over 60 yrs (1 - 1-dose 75+ series) 02/23/2019 COVID-19 VACCINE ( - 2023-2 5 season) 2023 DEPRESSION SCREENING 04/21/2024 MEDICARE AWV CALENDAR YEAR 2024 INFLUENZA VACCINE (#1) 2024 HEPATITIS B VACCINE Aged Out No longe r eligible based on patient's age to complete this topic HIB VACCINE Aged Out No longer eligi ble based on patient's age to complete this topic HPV VACCINE Aged Out No longer eligi ble based on patient's age to complete this topic MENINGOCOCCAL (Group B) VACC INE SHARED DECISION-MAKING Aged Out No longer eligibl e based on patient's age to complete this topic MENINGOCOCCAL GROUPS A/C/Y/W VACCINE Aged Out No longer eligible b ased on patient's age to complete [place] [address] MEDICARE [facility] MEDICARE [facility] Care Teams Termite Control Technician Relationship Specialty Start Date End Date El Johnson MD PCP - General Internal Medicine 02/24/18 Preston Ratliff DO Orthopedic Surgery 02/24/18
--- OUTSIDE RECORDS SUMMARY | 2024-10-26 10:21 | XMS_ITS | Encounter Summary ---
Author Organization [facility] Address [address] [place] [address] Care Team Providers Care Water [employer] Sewer Systems Supervisor Name Role Phone El Johnson MD Primary Care Provider [phone] Preston Ratliff DO Unavailable Encounter Details Date Type Department Care Team (Late st Contact Info) Description 02/29/2020 [facility] Outpatient Visit [facility] Orthopedics - Radiology [address] [place] [address] Preston Ratliff, DO [address] [address] Social History Tobacco Use Types [...] COVID-19? 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
[2024-10-26 10:33] LABS: Add Urine Microscopic? NO; Appearance Urine Clear (Clear); Glucose Urine UA Negative (Negative); Hematocrit 45.7 % (35.0-42.0); Hemoglobin 15.0 g/dL (11.7-13.8); Immature Granulocyte Percent A 0.4 % (0.0-0.0); Leukocyte Esterase Ur Negative LEU/UL (Negative); Lymphocytes Absolute Auto 2.01 K/mm3 (1.10-4.50); Mean Corpuscular HGB Conc 32.8 g/dL (32-36); Mean Corpuscular Hemoglobin 30.8 pg (27.0-31.0); Mean Corpuscular Volume 93.8 fL (78.0-102.0); Nitrate Urine Negative (Negative); Nucleated Red Blood Cells Absolute Auto 0.00 K/mm3 (0.00-0.00); Nucleated Red Blood Cells Perc 0.0 % (0-0.0); Platelet Count Result 229 K/mm3 (150-420); Red Blood Count 4.87 M/mm3 (4.20-5.40); Specific Grav Ur <= 1.005 (1.010-1.020); White Blood Count 7.3 K/mm3 (4.8-10.8)
[2024-10-26 10:41] LABS: Hemoglobin A1C 5.4 % (<5.7)
[2024-10-26 11:05] LABS: Alanine Aminotransferase 17 U/L (6-35); Albumin Level 4.5 g/dL (3.5-5.1); Alkaline Phosphatase 96 U/L (38-126); Anion Gap 6 mmol/L (4-12); Aspartate Amino Transferase 28 U/L (14-36); Bilirubin,Total 1.0 mg/dL (0.2-1.3); Blood Urea Nitrogen 17 mg/dL (7-17); Calcium 9.4 mg/dL (8.4-10.2); Carbon Dioxide 28 mmol/L (22-30); Chloride 107 mmol/L (98-107); Cholesterol 209 mg/dL (0-200); Creatine Kinase 57 U/L (30-135); Estimated Glomerular Filt Rate > 60; Glucose 93 mg/dL (65-110); HDL Direct 63 mg/dL; Osmolality Calculated 293 mOsm/kg (285-295); Potassium 4.5 mmol/L (3.4-5.0); Sodium 141 mmol/L (137-145); Total Protein 7.0 g/dL (6.3-8.2); Triglycerides 157 mg/dL (<150)
[2024-10-26 11:23] LABS: Free T3 3.72 pg/mL (2.18-3.98); Free T4 Free Thyroxine 1.58 ng/dL (0.78-2.19)
[2024-10-26 11:36] LABS: Thyroid Stimulating Hormone 0.528 uIU/mL (0.465-4.680)
== END 2024-10-26 10:12 | disposition home or self-care (01) ==
LOC: CHSLAB 10:13
PROVIDERS: PCP Internal Medicine; Visit Provider Internal Medicine
DX: E03.4 Atrophy of thyroid (acquired) (principal); E78.2 Mixed hyperlipidemia; N39.0 Urinary tract infection, site not specified; E55.9 Vitamin D deficiency, unspecified; R73.01 Impaired fasting glucose
CPT/HCPCS: 36415; 80053; 80061; 81003; 82306; 82550; 83036; 84439; 84443; 84481; 85025